=== PATIENT | male | born 1950 | race Caucasian/White ===

== ENCOUNTER 2018-04-07 08:46 | Inpatient (IN) | payer OTHER ==
[~2018-04-07] VITALS: Ht 190.5 cm; Wt 107.2 kg
[2018-04-07] VITALS (8 sets, daily range): BP systolic 118–148; BP diastolic 81–95
[2018-04-07 09:15] LABS: BE(vivo) 7.6 mmol/L (-2 to +3); HCO3 34.2 mmol/L (22.0-26.0); PCO2 56.7 mmHg (35.0-45.0); pH 7.398 (7.360-7.450); sO2 96.8 % (92.0-98.0)
[2018-04-07 09:15] LABS: ABSOLUTE NEUTROPHILS 3.7 thou/uL (1.4-8.2); BASOPHILS 0.4 % (0.0-2.0); EOSINOPHILS 4.9 % (0.0-3.0); HEMOGLOBIN 12.8 gm/dL (14.0-18.0); LYMPHOCYTES 17.7 % (24.0-44.0); MCH 29.4 pg (26.0-34.0); MCHC 32.7 g/dL (28.0-37.0); MCV 89.7 fL (80.0-100.0); PLATELET COUNT 269 thou/uL (150-400); RBC 4.35 mil/uL (4.50-6.00); RDW 15.1 % (10.5-14.5); WBC 5.5 thou/uL (4.0-11.0)
[2018-04-07] MEDS ORDERED: ALBUTEROL2.5 MG/31 INH (09:17)
[2018-04-07] MEDS ORDERED: ASPIR 8181 MG PO (09:19)
[2018-04-07] MEDS ORDERED: DILTIAZEM 24HR240 M2 PO (09:19)
[2018-04-07] MEDS ORDERED: DIGOXIN250 MCG PO (09:20)
[2018-04-07 09:24] LABS: ANION GAP 6 mmol/L (7-16); BUN 8 mg/dL (7-18); CALCIUM 9.4 mg/dL (8.5-10.1); CHLORIDE 101 mmol/L (98-107); CO2 37 mmol/L (21-32); CREATININE 0.8 mg/dL (0.7-1.3); GLUCOSE 106 mg/dL (74-106); POTASSIUM 4.2 mmol/L (3.5-5.1); SODIUM 144 mmol/L (136-145)
[2018-04-07 09:38] LABS: ALBUMIN 3.1 g/dL (3.4-5.0); DIGOXIN < 0.2 ng/mL (0.9-2.0); SGOT 36 U/L (15-37); SGPT 40 U/L (30-65); TOTAL BILIRUBIN 0.7 mg/dL (<0.1-1.0); TOTAL PROTEIN 7.4 g/dL (6.4-8.2); TROPONIN-I <0.06 ng/mL (<0.06)
[2018-04-07] MEDS ORDERED: ATORVASTATIN CA40 MG PO (09:48)
--- NOTE | 2018-04-07 09:48 | EKG ---
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: [facility] : 1950 Requested By: Shakira Bui Order Number: [id number] MD: Cal Boykin Measurements Intervals [place] Rate: 113 P: MS: QRS: 48 QRSD: 104 T: -59 QT: 330 QTc: 453 Interpretive Statements Atrial fibrillation RSR' in V1 or V2, right VCD Borderline T abnormalities, inferior leads No previous ECG available for comparison Electronically Signed On 04-07-2018 9:48:03 REGULATORY SPECIALIST by aCl Boykin [email or web address] ��������������������������������������������� <ELECTRONICALLY SIGNED> ���������������������������������������� By: Cal Boykin MD, [facility] ��������������������������������������������� 04/07/18 0948 0858 0858 Cal Boykin MD, FACC /EPI
[2018-04-07] MEDS ORDERED: AMLACTIN1 EACH TP (09:50)
[2018-04-07] MEDS ORDERED: COLACE100 MG PO (09:51)
[2018-04-07] MEDS ORDERED: DIPHENHIST50 MG PO (09:51)
[2018-04-07] MEDS ORDERED: KEPPRA 500 MG500 M2 PO (09:52)
[2018-04-07] MEDS ORDERED: ZOLOFT50 MG PO (09:53)
[2018-04-07] MEDS ORDERED: FLOMAX0.4 MG PO (09:53)
--- NOTE | 2018-04-07 15:41 | NUR ---
PT ARRIVED TO UNIT AT APROX 1435 WITH BAG, CLOTHES, SHOES, PHONE. SOLUTION LEAD BY ED STAFF. PT ALERT AND ORIENTED, C/O CHEST PAIN FROM COUGHING- NON CARDIAC. PT SOB WITH ACTIVITY, RESOLVES WITH REST. O2 SATS WNL ON 4 L O2 NC. VSS, HR ELEVATED, PHYSICIAN NOTIFIED AND AWARE. ADMISSION HISTORY DOCUMENTED, TELE PUT ON. ADMIT STRIP PRINTED AND DOCUMENTED. WILL ACKNOWLEDGE AND IMPLEMENT ORDERS. WILL CONTINUE TO MONITOR AND FOLLOW POC.
--- NOTE | 2018-04-07 18:37 | NUR ---
CADIZEM GTT STARTED AT 10MG/HR, CONTINUES AT THIS TIME. PT TOLERATING WELL. VSS, PT C/O NON CARDIAC CHEST PAIN FROM COUGHING, ALLEVIATD WITH REST/RELAXATION. PT SOB WITH ACTIVITY, RESOLVED WITH REST. AFIB ON MONITOR, NO S/SX OF CARDIAC OR RESP DISTRESS NOTED. O2 SATS WNL ON 4L O2. DENIES CONCERNS AT THIS TIME. WILL CONTINUE TO MONITOR AND FOLLOW POC.
[2018-04-08 04:27] LABS: BASOPHILS 0.3 % (0.0-2.0); EOSINOPHILS 0.1 % (0.0-3.0); HEMATOCRIT 35.2 % (42.0-52.0); HEMOGLOBIN 11.5 gm/dL (14.0-18.0); LYMPHOCYTES 7.9 % (24.0-44.0); MCH 28.9 pg (26.0-34.0); MCHC 32.5 g/dL (28.0-37.0); MCV 88.8 fL (80.0-100.0); MONOCYTES 1.2 % (1.0-8.0); PLATELET COUNT 270 thou/uL (150-400); POLYS 90.5 % (36.0-66.0); RBC 3.97 mil/uL (4.50-6.00); RDW 15.4 % (10.5-14.5); WBC 3.3 thou/uL (4.0-11.0)
--- NOTE | 2018-04-08 04:36 | NUR ---
ASSESSMENT DOCUMENTED.PT RESTING AT THIS TIME.VSS.A/OX4.PT REMAINS ON CARDIZEM DRIP AT 10MG/HR.ON MONITOR AFIB WITH HR RATE IN LOW 110S.HR INCREASES TO 140S WITH ACTIVITIES AND BR.ON O2 AT 4LITERS PNC,SATS ADEQUATE.BLOOD PRESSURE WNL.C/O HEADCHE AND CHEST PAIN(NON CARDIAC) THAT WAS CONTROLLED PARTIALLY WITH HYDROCODONE.UP WITH ASSIST TO BR.POC IS TO CONT WITH THE TX.WILL CONT TO MONITOR PER POC.
[2018-04-08 04:41] VITALS: BP 102/52
[2018-04-08 04:41] LABS: CALCIUM 8.7 mg/dL (8.5-10.1); CREATININE 0.7 mg/dL (0.7-1.3); MAGNESIUM 1.6 mg/dL (1.8-2.4); POTASSIUM 3.9 mmol/L (3.5-5.1)
[2018-04-08 08:00] VITALS: BP 108/67
--- NOTE | 2018-04-08 08:34 | EKG ---
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 : 1950 Requested By: Ophelia Townsend Order Number: [id number] MD: Cal Boykin Measurements Intervals [place] Rate: 125 P: NC: QRS: 63 QRSD: 104 T: 257 QT: 348 QTc: 502 Interpretive Statements Atrial fibrillation Nonspecific repol abnormality Prolonged QT interval Baseline wander in lead(s) V1 Compared to ECG 04/07/2018 08:58:50 Nonspecific change in the ST and T-wave segments Prolonged QT interval now present Electronically Signed On 04-08-2018 8:34:31 AUTOMATIC MACHINES SUPERVISOR by Cal Boykin [email or web address] ��������������������������������������������� <ELECTRONICALLY SIGNED> ���������������������������������������� By: Cal Boykin MD, [facility] ��������������������������������������������� 04/08/18 0834 1805 1805 Cal Boykin MD, [facility] /EPI
--- NOTE | 2018-04-08 10:15 | 2DMMODE ---
[facility] [address] [place] [address] 2 D/M-MODE ECHOCARDIOGRAM Name: IKER GAY Room #: 212-P ADM IN M.R.#: [id number] ������������� Admission: 04/07/18 ������������� Attend Phys: Evan Love, Discharge: ��� ������������� ��� Date of : 46 Date of Service: 04/08/18 1014 �� Report #: [id number] �������� ��������������������������������������������[id number] THIS REPORT FOR: //name// APPROVED REPORT Study performed: 04/08/2018 09:08:19 EXAM: Comprehensive 2D, Doppler, and color-flow Echocardiogram Patient Location: Echo lab Room #: 212 Status: routine BSA: 1.91 HR: 114 bpm BP: 108/67 mmHg Rhythm: Atrial Fibrillation Other Information Study Quality: Good Risk Factors: Cardiac Risk Factors: Hyperlipidemia, HTN, Smoking Indications COPD Atrial Fibrillation Hypertension/HDD 2D Dimensions IVSd: 10.88 (7-11mm) LVOT Diam: 22.00 (18-24mm) LVDd: 50.73 mm PWd: 11.39 (7-11mm) Ascending Ao: 38.29 (22-36mm) LVDs: 30.85 (25-40mm) Aortic Root: 37.35 mm LV Single Plane 4CH: 66.55 % LV Single Plane 2CH: 61.80 % Biplane EF: 64.4 % Volumes Left Atrial Volume (Systole) Single Plane 4CH: 103.51 mL Single Plane 2CH: 99.51 mL LA ESV Index: 57.00 mL/m2 Aortic Valve AoV Peak Alexx.: 1.46 m/s [facility] [address] [place] [address] 2 D/M-MODE ECHOCARDIOGRAM Name: IKER GAY Room #: 212-P [facility] IN .R.#: [id number] ������������� Admission: 04/07/18 ������������� Attend Phys: Evan Love, Discharge: ��� ������������� ��� Date of : 46 Date of Service: 04/08/18 1014 �� Report #: [id number] �������� ��������������������������������������������[id number] AO Peak Gr.: 8.66 mmHg LVOT Max P.26 mmHg LVOT Max V: 1.03 m/s LETTY Vmax: 2.59 cm2 Pulmonary Valve PV Peak Alexx.: 0.84 m/s PV Peak Gr.: 2.82 mmHg Tricuspid Valve TR Peak Alexx.: 3.15 m/s RAP Estimate: 7.00 mmHg TR Peak Gr.: 40.09 mmHg PA Pressure: 47.00 mmHg Left Ventricle The left ventricle is normal size. There is normal LV segmental wall motion. Borderline concentric left ventricular hypertrophy. Left ventricular systolic function is normal. The left ventricular ejection fraction is within the normal range. LVEF is 60-65%. This study is not technically sufficient to allow evaluation of the LV diastolic function due to atrial fibrillation. Right Ventricle Right ventricle is dilated. The right ventricular systolic function is normal. Atria Left atrium is severely dilated. Right atrium is severely dilated. Aortic Valve Mild aortic valve sclerosis. No aortic regurgitation is present. There is no aortic valvular stenosis. Mitral Valve The mitral valve is normal in structure. Mild mitral regurgitation. No evidence of mitral valve stenosis. Tricuspid Valve The tricuspid valve is normal in structure. Mild tricuspid regurgitation. Pulmonary artery pressure is 47 mmHg. Pulmonic Valve The pulmonary valve is normal in structure. There is no pulmonic valvular regurgitation. Great Vessels The aortic root is normal in size. IVC is normal in size and [facility] [address] [place] [address] 2 D/M-MODE ECHOCARDIOGRAM Name: VICTOR HUGOIKER Room #: 212-P ADM IN M.R.#: [id number] ������������� Admission: 04/07/18 ������������� Attend Phys: Evan Love, Discharge: ��� ������������� ��� Date of : 46 Date of Service: 04/08/18 1014 �� Report #: [id number] �������� ��������������������������������������������[id number] collapses >50% with inspiration. Pericardium There is no pericardial effusion. <Conclusion> The left ventricle is normal size. LVEF is 60-65%. Right ventricle is dilated. The right ventricular systolic function is normal. Left atrium is severely dilated. Right atrium is severely dilated. Mild aortic valve sclerosis. The mitral valve is normal in structure. Mild mitral regurgitation. The tricuspid valve is normal in structure. Mild tricuspid regurgitation. Pulmonary artery pressure is 47 mmHg. The pulmonary valve is normal in structure. There is no pericardial effusion. ��������������������������������������������� <ELECTRONICALLY SIGNED> ���������������������������������������� By: William Leong MD ��������������������������������������������� 04/08/18 1014 1014 1014 William Leong MD /INF
--- NOTE | 2018-04-08 11:20 | NUR ---
Admitted for SOB, pneumonia. Seen for 2 pt risk. Hx of htn, hld, COPD. Labs include Mg 1.6, BG 140-177. Pertinant medications include methylprednisolone, lispro. Pt reported loss of appetite within last week, likely from pneumonia. Appetite usually good. States appetite is increasing, ate 100% of breakfast. Gainned 10-20 lbs at [facility], was on EN. Is currently at UBW of 245. Other notes reported mechanical soft diet at home, pt states was due to weakness chewing. This since has resolved and pt states he has no problems with regular diet. Considered low risk at this time.
[2018-04-08 11:40] VITALS: BP 106/58
--- NOTE | 2018-04-08 12:50 | NUR ---
Case opened to follow for dc planning. Family Resource Specialist visited with the pt at bedside and message left for his sister Tabatha per his request. The pt recently went to [facility] SNF for rehab with the goal of returning home once he was stronger. He does not wish to return to that snf and would like to have a referral sent to [facility] in [place] near his sister Tabatha. Dc supply chain planner to send the referral. He indicates that he lived indep in [facility] with several steps to enter prior to being hospitalized (at [facility]) . He has home o2, a walker and a w/c. He is feeling stronger and is hoping he won't need to be in the SNF for more than a week or two. Dc timeframe is uncertain. The pt is on iv cardizem and iv atb. He is being treated for pneumonia. Will follow.
--- NOTE | 2018-04-08 15:37 | NUR ---
ASSESSMENTS DOCUMENTED. PT AFIB ON THE MONITOR - RATES NOT CONTROLLED. ADDED PO METOPROLOL. ABLE TO TITRATE OFF CARDIZEM GTT. RATES IN THE 70'S. WORKED WITH PT/OT TODAY. IV ABX GIVEN. INSULIN PER MAR FOR ACHS BLOOD SUGARS. PLAN FOR PATIENT TO DISCHARGE TO SNF FOR SOME REHAB ONCE MEDICALLY STABLE. WILL CONTINUE TO MONITOR.
[2018-04-08 16:00] VITALS: BP 92/55
--- NOTE | 2018-04-08 16:16 | NUR ---
FAXED REFERRAL TO [facility] IN [place], [place]. LEFT MSG WITH GAGE IN ADM. OF REFERRAL FAXED TO REVIEW. DCP TO FOLLOW.
--- NOTE | 2018-04-08 19:47 | HC ---
[facility] [address] CONSULTATION Name: IKER GAY Room #: 212-P ADM IN M.R.#: [id number] Admission: 04/07/18 ������������������ Attend Phys: Evan Love MD Discharge: ������������������ Date of : 46 Report #: [id number] THIS REPORT FOR: //name// CC: Evan Rosenbaumnoe Marte Clem DATE OF SERVICE: 04/07/2018 REFERRAL PHYSICIAN: Dr. Love. REASON FOR REFERRAL: Hypoxia. HISTORY OF PRESENT ILLNESS: The patient is a 68-year-old white male who presents to the Emergency Department with progressive dyspnea. A pulmonary consultation was requested. The patient normally gets his medical care at [facility]. 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 He was told that about 8 years ago. He has also been treated for COPD. He is on chronic O2 at 4-5 liters 24 hours a day. He was in his usual state of health until about yesterday evening when he noticed increasing dyspnea, cough productive of purulent sputum. For that reason, he presents to the Emergency Department. Presently, he is feeling better. He denies any recent chest pain or hemoptysis. PAST MEDICAL HISTORY: As mentioned above with a history of COPD, pulmonary fibrosis, atrial fibrillation, hypertension, chronic hypoxic respiratory failure on 3-4 liters of O2, anxiety, depression, questionable history of seizure disorder, currently on Keppra. PAST SURGICAL HISTORY: Noncontributory. ALLERGIES: None. HOME MEDICATIONS Nebulized albuterol, diltiazem, aspirin, Lanoxin, Lipitor, AmLactin, Benadryl, Colace, Keppra 500 mg p.o. b.i.d., Zoloft, Flomax. FAMILY HISTORY: Noncontributory. SOCIAL HISTORY: The patient has smoked for most of his life until about 8 years ago. He denies any alcohol use. He was recently hospitalized at [facility] and subsequently discharged to a chcf facility. [facility] [address] [place] [address] CONSULTATION Name: GAYIEKR Room #: 212-P ADM IN M.R.#: [id number] Admission: 04/07/18 ������������������ Attend Phys: Evan Love MD Discharge: ������������������ Date of : 46 Report #: [id number] REVIEW OF SYSTEMS: As mentioned above, otherwise 10-point system review negative. PHYSICAL EXAMINATION: GENERAL: He is awake, alert, in no distress. VITAL SIGNS: Temperature is 97.4 degrees Fahrenheit, pulse is 120, respiratory rate is 20, blood pressure 130/81 mmHg, saturating 95%. HEENT: Normocephalic, atraumatic. NECK: Supple, without lymphadenopathy or thyromegaly. CHEST: Breath sounds are fair with bilateral crackles, mild expiratory wheezes. CARDIOVASCULAR: Irregularly irregular. Pulses are 2+/4+ bilaterally. ABDOMEN: Soft, nontender, no organomegaly or masses felt. GENITOURINARY: Deferred. RECTAL: Deferred. EXTREMITIES: No edema, cyanosis or clubbing. LABORATORY DATA: Chest x-ray shows bilateral interstitial infiltrates, changes consistent with honeycombing in both lung magallanes, greater in the left lower lobe, throughout in the right lung field with elevated right hemidiaphragm, traction bronchiectasis is also noted in the right side. No old x-rays available for comparison. BNP is 1000. Procalcitonin level is 0.07. Electrolytes are normal, creatinine is normal. Liver enzymes are normal. WBC 5500, hemoglobin 12.8, no evidence of significant bandemia. Mild eosinophilia is present. Arterial blood gas revealed pH 7.39, pCO2 of 56, pO2 of 91 mmHg on 4 liters of O2. Albumin 3.1. IMPRESSION: 1. Progressive dyspnea in this 68-year-old white male with history of chronic obstructive pulmonary disease, pulmonary fibrosis. Arterial blood gas shows chronic hypercapnic hypoxic respiratory failure. Chest x-ray shows what appears to be chronic infiltrates, consistent with pulmonary fibrosis bilaterally. The patient has a history of COPD and is oxygen dependent. Etiology is probably related to exacerbation of chronic obstructive pulmonary disease along with perhaps also with exacerbation of underlying interstitial lung disease. 2. Chronic obstructive pulmonary disease, severity unknown. 3. Interstitial lung disease. Chest x-ray suggests pulmonary fibrosis. Appears to be moderately severe. Etiology is probably related to interstitial pneumonias. I would review records from [facility] for now and defer any further workup as I suspect this has been evaluated before. The patient has been followed by the Pulmonary Department at [facility]. 4. Tczim-wi-olarwhc hypercapnic hypoxic respiratory failure, normally on 4-3 liters of O2. 5. Atrial fibrillation with rapid ventricular response due to pulmonary impairment. [facility] [address] [place] [address] CONSULTATION Name: IKER GAY Room #: 212-P ADM IN M.R.#: [id number] Admission: 04/07/18 ������������������ Attend Phys: Evan Love MD Discharge: ������������������ Date of : 46 Report #: [id number] 6. Hypertension. 7. Anxiety and depression. 8. Questionable history of seizure disorder. Again, verifying with the medical records from [place] would be helpful. RECOMMENDATIONS: Agree with broad-spectrum antibiotics, corticosteroids. DVT and GI prophylaxis recommended. Would also request records from [facility] for review, particularly regarding his pulmonary history. Also, agree with broad spectrum antibiotics regarding possible nosocomial infections given his recent hospitalization. Thank you for this consultation. ��������������������������������������������� <ELECTRONICALLY SIGNED> ���������������������������������������� By: Estuardo Nj MD ��������������������������������������������� 04/08/18 [phone] Estuardo Nj MD /nt
[2018-04-08 19:56] VITALS: BP 96/59
--- NOTE | 2018-04-09 03:27 | NUR ---
ASSESSMENT DOCUMENTED.PT RESTING IN NO ACUTE DISTRESS.A/OX4.VSS.ON MONITOR REMAINS AFIB WITH CONTROLLED RATE.REMAINS ON OXYGEN USE,LUNGS SOUNDS CONGESTED AND COARSE.TOLERATES ACTIVITIES.ABT PER ORDERS.POC IS TO DISCHARGE TO NURSING FACILITY WHILE STABLE.WILL CONT TO MONITOR PER POC.
[2018-04-09 06:27] VITALS: BP 155/43
[2018-04-09 06:46] VITALS: BP 107/73
[2018-04-09 07:50] VITALS: BP 110/62
[2018-04-09 08:47] LABS: HEMATOCRIT 36.1 % (42.0-52.0); HEMOGLOBIN 11.4 gm/dL (14.0-18.0); MCH 28.4 pg (26.0-34.0); MCHC 31.6 g/dL (28.0-37.0); MCV 89.9 fL (80.0-100.0); RBC 4.02 mil/uL (4.50-6.00); RDW 15.4 % (10.5-14.5); WBC 7.3 thou/uL (4.0-11.0)
[2018-04-09 08:59] LABS: CREATININE 0.8 mg/dL (0.7-1.3); MAGNESIUM 1.9 mg/dL (1.8-2.4); POTASSIUM 4.3 mmol/L (3.5-5.1)
[2018-04-09 11:15] VITALS: BP 107/66
--- NOTE | 2018-04-09 12:02 | NUR ---
Case discussed with the care team. Pt desat with activity on 6liters of o2, needing 10 liters to recover. Continues on iv atb. Dc not likely til early next week. [facility] is the new name for [facility] in [facility]. [employer] spoke with their DON. They do have a bed for Thursday if he is ready. They will need a clinical update on Thursday morning. DC production planner scheduler has refaxed the H/p as it did not fax well. Will follow.
--- NOTE | 2018-04-09 16:52 | NUR ---
PT CARE ASSUMED APPROX 0700. PT ALERT AND ORIENTED X4. C/O SOA X1 THIS SHIFT AFTER AMBULATING WITH PT. ONCE RECOVERED PT DENIES SOA ALL DAY. PT C/O NONCARDIAC CHEST PAIN FROM COUGHING. PAIN MANAGED WITH HYDROCODONE. PT REPORTS RELIEF. VSS. BS ELEVATED PERIODICALLY. BS CONTROLLED WITH SSI. NONE NEEDED THIS EVENING. IV ABT REMAINS TO POC. NO DISTRESS NOTED.
[2018-04-09 17:15] VITALS: BP 138/16
[2018-04-09 19:58] VITALS: BP 90/63
--- NOTE | 2018-04-10 03:35 | NUR ---
ASSESSMENT DOCUMENTED.PT RESTING IN NO ACUTE DISTRESS.A/OX4.PAIN MEDS GIVEN FOR NON CARDIAC CHEST PAIN AND HEADACHE WITH PARTIAL RELIEF.VSS.AFIB ON MONITOR,RATE CONTROLLED.REMAINS ON ABT TX.O2 AT 4LITERS NC,NO RESP DISTRESS NOTED OR REPORTED.POC IS TO CONT WITH ABT,NEB TX,STEROIDS AND DISCHARGE TO SNF WHILE STABLE.
[2018-04-10 04:02] VITALS: BP 103/73
[2018-04-10 06:22] LABS: HEMATOCRIT 34.4 % (42.0-52.0); HEMOGLOBIN 11.2 gm/dL (14.0-18.0); MCHC 32.5 g/dL (28.0-37.0); MCV 89.3 fL (80.0-100.0); RBC 3.85 mil/uL (4.50-6.00); RDW 15.5 % (10.5-14.5); WBC 5.1 thou/uL (4.0-11.0)
[2018-04-10 06:44] LABS: CALCIUM 8.1 mg/dL (8.5-10.1); CREATININE 0.7 mg/dL (0.7-1.3); POTASSIUM 4.4 mmol/L (3.5-5.1)
[2018-04-10 08:18] VITALS: BP 107/77
[2018-04-10 11:54] VITALS: BP 104/68
--- NOTE | 2018-04-10 16:33 | NUR ---
PT CARE ASSUMED APPROX 0700. PT ALERT AND ORIENTED X4. DENIES SOA WITH REST. SOA WITH EXERTION NOTED. IMPROVED FROM YESTERDAY PER PT REPORT. C/O NONCARDIAC CHEST PAIN. PAIN MANAGED WITH HYDRCODONE. VSS. IV ABT REMAIN TO POC. BS WNL SO FAR THIS DAY. NO DISTRESS NOTED.
[2018-04-10 16:36] VITALS: BP 114/66
[2018-04-10 19:52] VITALS: BP 103/66
--- NOTE | 2018-04-11 04:41 | NUR ---
ASSUMED PT CARE AT 1900 WITH BEDSIDE REPORT COMPLETED. PT IS ALERT AND ORIENTED. NO FAMILY AT BEDSIDE. PT IS LAYING IN BED. ASSESSMENT IS COMPLETED AND CHARTED. SCHEDULED MEDS ADMINISTERED TO PATIENT. PT TOLERATED PO INTAKE. PT IS STABLE. NO SIGN OF DISTRESS NOTED IN PT. DENIES ANY NEEDS AT THIS TIME.
[2018-04-11 05:51] VITALS: BP 107/68
[2018-04-11 06:17] LABS: HEMATOCRIT 34.7 % (42.0-52.0); MCH 30.7 pg (26.0-34.0); MCHC 34.5 g/dL (28.0-37.0); MCV 88.9 fL (80.0-100.0); RBC 3.91 mil/uL (4.50-6.00); RDW 15.2 % (10.5-14.5); WBC 4.2 thou/uL (4.0-11.0)
[2018-04-11 06:34] LABS: CALCIUM 8.1 mg/dL (8.5-10.1); CREATININE 0.8 mg/dL (0.7-1.3); MAGNESIUM 1.8 mg/dL (1.8-2.4); POTASSIUM 4.1 mmol/L (3.5-5.1)
[2018-04-11 07:50] VITALS: BP 109/80
[2018-04-11 11:35] VITALS: BP 96/51
[2018-04-11 15:35] VITALS: BP 113/64
--- NOTE | 2018-04-11 18:13 | NUR ---
PT CARE ASSUMED APPROX 0700. PT ALERT AND ORIENTED X4. DENIES SOA. C/O PAIN 09/18 NON CARDIAC CHEST PAIN. PAIN MANAGED WITH HYDROCODONE. PT REPORTS RELIEF. VSS. BS ELEVATED. SSI USED TO CONTROL. UP WITH SBA. STEADY GAIT. NO DESATTING OR SOA NOTED WITH EXERTION. IV STEROIDS REMAIN TO POC. IV ABT REMOVED FROM POC. NO CLINICAL CHANGES NOTED THIS SHIFT.
[2018-04-11 19:52] VITALS: BP 109/72
--- NOTE | 2018-04-12 03:07 | NUR ---
ASSESSMENT DOCUMENTED.PT BEEN RESTING IN NO ACUTE DISTRESS.A/OX4.VSS.AFIB ON MONITOR WITH CONTROLLED RATE.PT REMAINS ON O2 AT 4LITERS PNC.DYSPNEA WITH EXERTION NOTED ESPECIALLY WHILE AMBULATING,RECOVERS BETTER THAN LAST COUPLES OF DAYS.NON CARDIAC PAIN REPORTED THAT IS CONTROLLED WITH PAIN MEDS.POC IS TO DISCHARGE TO A NURSING FACILITY WHILE STABLE.WILL CONT TO MONITOR PER POC.
[2018-04-12 04:27] LABS: HEMATOCRIT 36.8 % (42.0-52.0); HEMOGLOBIN 12.3 gm/dL (14.0-18.0); MCH 29.4 pg (26.0-34.0); MCHC 33.3 g/dL (28.0-37.0); MCV 88.4 fL (80.0-100.0); RBC 4.16 mil/uL (4.50-6.00); RDW 15.1 % (10.5-14.5); WBC 5.2 thou/uL (4.0-11.0)
[2018-04-12 04:36] LABS: CALCIUM 8.1 mg/dL (8.5-10.1); CREATININE 0.8 mg/dL (0.7-1.3); MAGNESIUM 1.8 mg/dL (1.8-2.4); POTASSIUM 4.3 mmol/L (3.5-5.1)
[2018-04-12 04:58] VITALS: BP 101/61
[2018-04-12 08:51] VITALS: BP 119/82
[2018-04-12 11:48] VITALS: BP 124/74
--- NOTE | 2018-04-12 13:42 | NUR ---
FAXED REFERRAL TO [facility] SPOKE WITH VAL IN ADM. SHE REVIEWED AND WILL BE ABLE TO ACCEPT AT DC. DCP TO FOLLOW.
--- NOTE | 2018-04-12 14:55 | NUR ---
met with patient to discuss dc planning. Patient accepted to [facility] for post acute care. patient admitted from [facility] from [place] and did not want to return. Patient reports he no longer wants post acute care he wants to return home with HH care, no preference for HH. He reports he may loose his food stamps and requested caset fax his [facility] prescriptions to a SS number he gave. Informed him cannot fax this infor as no affiliated with [employer] and not faxing medical information to unknown fax number. Sp with his [place] sound engineering technician Lorrie who reports she will f/u regarding his food stamps. Patient reports he lives in [facility] with flight of steps to bedroom. He reports he feels at baseline and has home oxygen unu 4 liters at home via [employer] [facility]. He has a walker at home. He is agreeable for caset to call sister. Updated sister that patient adament to return home and no longer agreeable to post acute care. Updated phys, planned tenative dc home in am with HH care.
--- NOTE | 2018-04-12 15:12 | NUR ---
FAXED REFERRAL TO [facility]. SPOKE WITH GENO IN ADM. SHE RECEIVED REFERRAL AND WILL REVIEW. DCP TO FOLLOW.
--- NOTE | 2018-04-12 15:38 | NUR ---
spoke with therapy patient cont to desat with ambulation. he cont to want to return home. Sp with [facility] to reeval as patient willing to stay here in hospital for rehab.
[2018-04-12 16:00] VITALS: BP 109/74
--- NOTE | 2018-04-12 18:26 | NUR ---
ASSUMED CARE OF PT AT SHIFT CHANGE. ASSESSMENTS CHARTED. MEDS GIVEN PER APR. PT ALERT AND ORIETNTED, C/O PAIN THIS SHIFT, MANAGED WITH PO PAIN MEDS. O2 SATS WNL ON 4-6 L, CONTINUES TO BE SOB WITH ACTIVITY. RESOLVED WITH REST. NO S/SX OF CARDIAC OR RESP DISTRESS NOTED. PT UP WITH PHYSICAL THERAPY, WALKED AROUND UNIT, TOLERATED WELL. SW FOLLOWING FOR DC PLANNING, FAMILY UPDATED. PT DENIES CONCERNS AT THIS TIME. WILL CONTINUE TO MONITOR AND FOLLOW POC.
[2018-04-12 20:19] VITALS: BP 112/69
--- NOTE | 2018-04-13 03:20 | NUR ---
ASSESSMENT DOCUMENTED.PT RESTING IN NAD.A/OX4.DENIES ANY CONCERNS.PT DISCHARGING TODAY TO HOME WITH HH.REMAINS ON O2 AT 4LITERS PER NC.VSS.AFIB ON MONITOR W/CONTROLLED HR.PT READY TO GO HOME.WILL CONT TO MONITOR PER POC.
[2018-04-13 04:14] VITALS: BP 112/69
[2018-04-13 04:25] LABS: HEMATOCRIT 36.8 % (42.0-52.0); MCH 29.1 pg (26.0-34.0); MCHC 32.7 g/dL (28.0-37.0); MCV 89.1 fL (80.0-100.0); RBC 4.13 mil/uL (4.50-6.00); RDW 15.3 % (10.5-14.5); WBC 5.3 thou/uL (4.0-11.0)
[2018-04-13 04:42] LABS: CALCIUM 8.4 mg/dL (8.5-10.1); CREATININE 0.7 mg/dL (0.7-1.3); MAGNESIUM 1.9 mg/dL (1.8-2.4); POTASSIUM 4.5 mmol/L (3.5-5.1)
[2018-04-13 08:20] VITALS: BP 123/86
[2018-04-13 08:23] VITALS: BP 123/86
[2018-04-13] MEDS ORDERED: METOPROLOL SUCC50 MG PO (10:41)
[2018-04-13] MEDS ORDERED: PREDNISONE 20 M20 MG PO (10:48)
--- NOTE | 2018-04-13 10:54 | NUR ---
Patient accepted to [facility]. Discussed with patient who is agreeable to [facility] and aware he must stay at least 5 days for therapy. He is agreeable. Left message for sister to call casemgt.
[2018-04-13 12:00] VITALS: BP 110/71
--- NOTE | 2018-04-13 15:52 | NUR ---
ASSUMED CARE OF PT AT SHIFT CHANGE. ASSESSMENTS CHARTED. MEDS GIVEN PER APR. PT ALERT AND ORIENTED, C/O CHEST PAIN FROM COUGHING, MANAGED WITH PO PAIN MEDS. O2 SATS WNL ON 4L, NO S/SX OF CARDIAC OR RESP DISTRESS NOTED. PT UP SBA WITH PHYSICAL THERAPY, TOLERATED WELL, SOB WITH EXERTION, RESOLVED WITH REST. DC ORDERS FOR [facility] ACKNOWLEDGED AND IMPLEMENTED, REPORT CALLED TO [facility] NURSE. IV REMOVED, TELE REMOVED, PT LEFT UNIT AT APPROX 1515 BY [facility]OL[facility]ER [facility]SPORT WITH ALL BELONGINGS.
== END 2018-04-13 15:48 | DRG 177 ==
LOC: ER 08:46 → EROBS 10:29 → 2N 10:29 → EROBS 11:18 → 2N 14:26 → ENTRNSPT 04-13 15:12 → EDTRNSPTSTS 04-13 15:20 → 2N 04-13 15:48
PROVIDERS: Nurse Practitioner; Student in an Organized Health Care Education/Training Program; ADMIT Internal Medicine
DX: J15.6 Pneumonia due to other Gram-negative bacteria (principal); J96.21 Acute and chronic respiratory failure with hypoxia; J96.22 Acute and chronic respiratory failure with hypercapnia; J44.1 Chronic obstructive pulmonary disease with (acute) exacerbation; I10 Essential (primary) hypertension; F41.9 Anxiety disorder, unspecified; F32.9 Major depressive disorder, single episode, unspecified; G40.909 Epilepsy, unspecified, not intractable, without status epilepticus; E78.5 Hyperlipidemia, unspecified; N40.0 Benign prostatic hyperplasia without lower urinary tract symptoms; Z60.2 Problems related to living alone; J84.10 Pulmonary fibrosis, unspecified; G89.4 Chronic pain syndrome; G47.33 Obstructive sleep apnea (adult) (pediatric); I48.2 Chronic atrial fibrillation; E83.51 Hypocalcemia; Z79.899 Other long term (current) drug therapy; Z87.891 Personal history of nicotine dependence; Z99.81 Dependence on supplemental oxygen; Z83.3 Family history of diabetes mellitus; Z84.89 Family history of other specified conditions; Z91.012 Allergy to eggs
CPT/HCPCS: 10081

== ENCOUNTER 2018-04-13 11:31 | Inpatient (IN) | payer OTHER ==
[~2018-04-13] VITALS: Ht 190.5 cm; Wt 108.0 kg
--- NOTE | ~2018-04-13 | H ---
[facility] [place] [address] HISTORY AND PHYSICAL Name: IKER GAY Room #: 501-A ADM IN M.R.#: [id number] Admission: 04/13/18 ������������������ Attend Phys: Krishna Chavez MD Discharge: ������������������ Date of : 46 Report #: [id number] THIS REPORT FOR: //name// CC: Krishna Galvin DATE OF SERVICE: 04/13/2018 HISTORY AND PHYSICAL/POSTADMISSION PHYSICIAN EVALUATION: HISTORY OF PRESENT ILLNESS: The patient is a 68-year-old male originally admitted to [facility] 04/07/2018 with increased shortness of breath, acute on chronic respiratory failure, noted to have acute exacerbation of COPD. Initial atrial fibrillation with rapid ventricular rate. He was followed by Cardiology and Pulmonary were titrated down on IV steroids. Treated with nebulizer treatments. He premorbidly is on 4-5 liters nasal prong O2 at home. He was noted to have a significant decline from his premorbid function and has been admitted for acute in-hospital inpatient rehabilitation. PAST MEDICAL HISTORY: Includes pulmonary fibrosis, atrial fibrillation, pneumonia, COPD, hyperlipidemia, BPH, seizure disorder. PAST SURGICAL HISTORY: Includes nose surgery. FAMILY HISTORY: Diabetes in his brother and his mother had brain surgery. HABITS: Past smoker, quit greater than a year ago. No history of alcohol abuse. No history of recreational drug usage. MEDICATIONS: Please see the full medication listing. This includes vitamins, herbals, and supplements per report. ALLERGIES: Include EGG. SOCIAL HISTORY: Lives in a house alone, was premorbidly independent with basic ADLs and IADLs. He does have someone come in to help with cleaning, cooking, 4 days a week for a couple of hours per day. He was driving in the community. Did not utilize any gait aids.k REVIEW OF SYSTEMS: Did not offer any current complaints of chest pain, shortness of breath or abdominal discomfort. No complaints of fever or chills. No palpitations. No headache, dizziness, tingling. Did not offer any complaints of any bowel or bladder changes. PHYSICAL EXAMINATION: GENERAL: He is a pleasant 68-year-old white male in no obvious distress. The [address] [address] HISTORY AND PHYSICAL Name: IKER GAY Room #: 501-A [facility] IN .R.#: [id number] Admission: 04/13/18 ������������������ Attend Phys: Krishna Chavez MD Discharge: ������������������ Date of : 46 Report #: [id number] patient is alert. VITAL SIGNS: Last recorded temperature 97.9, pulse 77, respirations 20, blood pressure 110/71. HEENT: Appeared to be benign. Cranial nerves grossly intact. He is currently on 4 liters nasal prong. Facies are symmetric. CHEST: He might have some diffuse decreased breath sounds. CARDIOVASCULAR: Sounded irregularly irregular. ABDOMEN: Bowel sounds positive, nontender. GENITOURINARY AND RECTAL: Deferred. EXTREMITIES: Functional range of motion of both upper extremities. Strength is grade 4-/5. DTRs are trace to 1. Lower extremities: No focal calf swelling, trace to no edema. Functional range of motion, strength is grade 4-/5. DTRs are trace to 1. Functionally, he has been needing min assist with basic transfers and min assist for short distance ambulation. ASSESSMENT: This is a 68-year-old male with the following problem list: 1. Pulmonary rehabilitation. 2. Acute on chronic respiratory failure. 3. Acute exacerbation of chronic obstructive pulmonary disease. 4. Atrial fibrillation, now rate controlled. 5. Pulmonary fibrosis. 6. Benign prostatic hypertrophy. 7. History of chronic pain syndrome. 8. Depression. 9. History of low calcium. Last calcium was noted to be 8.2. PLAN: The patient is admitted for acute in-hospital inpatient rehabilitation. From a postadmission physician evaluation perspective, there are no relevant changes since the preadmission screening. Please see the above review of prior and current medical and functional conditions and comorbidities. Please see the patient's previous and current functional status. As far as risk of complications, the patient has multiple medical comorbidities as noted above. The initial plan of care involves the interdisciplinary acute inpatient rehabilitation program with goal of maximizing the patient's functional independence, so that he can hopefully return back to his prior living situation. Prognosis is reasonably good with estimated length of stay, probably 7-10 days. Potential barriers would include the patient's multiple medical comorbidities and decreased functional status. The patient meets diagnostic criteria for an acute in-hospital inpatient rehabilitation stay. He meets the medical necessity criteria [place] [address] HISTORY AND PHYSICAL Name: IKER GAY Room #: 501-A [facility] IN ..#: [id number] Admission: 04/13/18 ������������������ Attend Phys: Krishna Chavez MD Discharge: ������������������ Date of : 46 Report #: [id number] the retail wireless sales consultant physicians continue to follow. He does have the tolerance for therapies and has appropriate discharge goals back to the home setting. ��������������������������������������������� ���������������������������������������� By: ��������������������������������������������� [id number] Krishna Chavez MD /nt
--- NOTE | ~2018-04-13 | D ---
[facility] [place] [address] DISCHARGE SUMMARY Name: IKER GAY Room #: 501-A [facility] IN M.R.#: [id number] Admission: 04/13/18 ������������������ Attend Phys: Krishna Chavez MD Discharge: 04/18/18 ������������������ Date of : 46 Report #: [id number] THIS REPORT FOR: //name// CC: Krishna [facility] DATE OF SERVICE: 04/18/2018 HISTORY: This is a 68-year-old male originally admitted with increased shortness of breath, yulxc-af-qgovzqx respiratory failure, noted to have acute exacerbation of COPD. He had atrial fibrillation with rapid ventricular rate. He was followed by Cardiology, Pulmonary, and was titrated down on IV steroids. He was admitted for pulmonary rehabilitation. Please see the full admission note dictation. HOSPITAL COURSE: The patient was involved in the inpatient rehabilitation program. He was working in therapies, although his progress was adversely affected by some hypotension. He was able to transfer with contact guard and able to ambulate up to 15 feet with min assist. He has chronic atrial fibrillation with problems with hypotension. He was not tolerating beta blockers and Cardizem was to be held. He continued to be dizzy standing and had some loose stools. It was felt that he would require better control of his atrial fibrillation and blood pressure and thus he was transferred off the acute inpatient rehabilitation peterson. DISCHARGE DIAGNOSES: 1. Pulmonary rehabilitation. 2. Dgxwk-fc-ddxmqgf respiratory failure. 3. Symptomatic orthostatic hypotension. 4. Atrial fibrillation. 5. Acute exacerbation of chronic obstructive pulmonary disease. 6. Pulmonary fibrosis. 7. Benign prostatic hypertrophy. 8. Chronic pain syndrome. 9. Depression. 10. Low calcium. PLAN: The patient has been discharged back to acute care. We will defer further medication management, activity level, etc all as per the accepting service. He was actually discharged yesterday on 04/18/2018. ��������������������������������������������� ���������������������������������������� By: ��������������������������������������������� 1155 Krishna Chavez MD /PMT
--- NOTE | ~2018-04-13 | PLAN ---
[facility] [place] [address] REHAB UNIT PLAN OF CARE Name: IKER GAY Room #: 501-A ADM IN M.R.#: [id number] Admission: 04/13/18 ������������������ Attend Phys: Krishna Chavez MD Discharge: ������������������ Date of : 48 Report #: [id number] THIS REPORT FOR: //name// CC: Krishna Galvin DATE OF SERVICE: 04/16/2018 HISTORY: The patient is seen back today in followup. He has had some problems with orthostatic hypotension, which has inhibited his ability to tolerate therapies. Internal Medicine is involved and he has had adjustments to his medications and has been given IV normal saline. Transfers have been contact guard assistance with gait min assist 15 feet. In occupational therapy, lower body dressing is min assist. ASSESSMENT: 1. Pulmonary rehabilitation. 2. Orthostatic hypotension. 3. Acute on chronic respiratory failure. 4. Acute exacerbation of chronic obstructive pulmonary disease. 5. Atrial fibrillation, now rate controlled. 6. Pulmonary fibrosis. 7. Benign prostatic hypertrophy. 8. History of chronic pain syndrome. 9. Depression. 10. History of low calcium. PLAN: The overall plan of care is based on the preadmission screen, post-admission physician evaluation and information garnered from therapy assessments. 1. Estimated length of stay is probably at least 7-10 days, pending progress and potentially longer if warranted. 2. Medical prognosis is reasonably good. 3. Anticipated interventions includes the interdisciplinary acute inpatient rehabilitation program. 4. Anticipated functional outcomes would be for the patient to become modified independent with transfers, mobility, ADLs so that he can hopefully return back to his prior living situation. Goal at this point would be independent at a walker level. 5. Discharge destination would be back home where he lives by himself and does have some paid help. 6. Expected therapy by discipline includes PT, OT 1 to 1-1/2 hours per day each five days a week throughout the duration of the acute inpatient rehabilitation stay. He may need some more assistance at home and will need to see how he does with his therapy program and further treating his orthostatic hypotension. [address] [address] REHAB UNIT PLAN OF CARE Name: VICTOR HUGOIKER Room #: 501-A [facility] IN M.R.#: [id number] Admission: 04/13/18 ������������������ Attend Phys: Krishna Chavez MD Discharge: ������������������ Date of : 48 Report #: [id number] ADDENDUM The patient has missed some therapies in the last couple of days secondary to blood pressure issues with his orthostatic hypotension. He will be placed on a low endurance program. ��������������������������������������������� ���������������������������������������� By: ��������������������������������������������� [id number] Krishna Chavez MD /nt
[~2018-04-13 11:31] MED LIST: ALBUTEROL2.5 MG/31 INH; AMLACTIN1 EACH TP; ASPIR 8181 MG PO; ATORVASTATIN CA40 MG PO; COLACE100 MG PO; DIGOXIN250 MCG PO; DILTIAZEM 24HR240 M2 PO; DIPHENHIST50 MG PO; FLOMAX0.4 MG PO; KEPPRA 500 MG500 M2 PO; METOPROLOL SUCC50 MG PO; PREDNISONE 20 M20 MG PO; ZOLOFT50 MG PO
[2018-04-13 16:00] VITALS: BP 117/72
--- NOTE | 2018-04-13 16:26 | NUR ---
ADMITTED TO ROOM 501. PATIENT IS ALERT AND ORIENTED X4. PATIENT HINTON'S MIXER TENDER ARE EQUAL. LUNGS ARE COARSE AND DEMINISHED WITH EXPIRATORY WHEEZES. PATIENT IS ON 02 AT 4 L PER N/C. PATIENT REMAINS ON RESPIRATORY TX. ABD IS SOFT WITH BSX4. PATIENT HAD BM TODAY. VOIDS [place] COLORED URINE PER URINAL. FALL AND SAFETY PROTOCOLS IN PLACE. DENIES PAIN AT THIS TIME. PT/OT/ST EVALS TO BE DONE IN A.M. WILL CONTINUE TO MONITER.
[2018-04-13 19:15] VITALS: BP 110/71
--- NOTE | 2018-04-14 03:39 | NUR ---
Assumed care of pt at 1915. Pt alert and oriented x4. Ambulates to bathroom with standby assist using gait belt. c/o back pain, relieved with po Lortab. Has appeared to be sleeping when checked on hourly rounds. Fall precautions in place.
[2018-04-14 05:14] LABS: HEMATOCRIT 38.4 % (42.0-52.0); HEMOGLOBIN 12.4 gm/dL (14.0-18.0); MCHC 32.4 g/dL (28.0-37.0); MCV 89.4 fL (80.0-100.0); RBC 4.29 mil/uL (4.50-6.00); RDW 15.2 % (10.5-14.5); WBC 6.7 thou/uL (4.0-11.0)
[2018-04-14 05:27] LABS: ANION GAP < 0 mmol/L (7-16); BUN 23 mg/dL (7-18); CALCIUM 8.2 mg/dL (8.5-10.1); CHLORIDE 100 mmol/L (98-107); CO2 40 mmol/L (21-32); CREATININE 0.7 mg/dL (0.7-1.3); GLUCOSE 96 mg/dL (74-106); MAGNESIUM 1.8 mg/dL (1.8-2.4); POTASSIUM 4.1 mmol/L (3.5-5.1); SODIUM 139 mmol/L (136-145)
[2018-04-14 08:15] VITALS: BP 115/81
--- NOTE | 2018-04-14 11:37 | NUR ---
ASSUMED CARE AT 0700. PATIENT IS ALERT AND ORIENTEDX4. PATIENT HINTON'S. COFOUNDER ARE EQUAL. LUNGS ARE COARSE AND DEMINISHED WITH EXPIRATORY WHEEZES. PATIENT ON 02 AT 4L PER N/C. PATIENT CONTINUES ON RESPIRATORY TX. BS 84 THIS AM. PATIENT SERVED BREAKFAST. BP95/60, INCREASED FLUIDS. COMPLAIN OF BEING DIZZY WHEN SITS ON SIDE OF BED. LEFT IN BED THIS A.M. BP 101/60. FALL AND SAFETY PROTOCOLS IN PLACE. C/O NON CARDIAC CP, FROM COUGHING. MEDICATED WITH PRN HYDROCODONE 5/325 1 PO. ACCUCHECKS AND SS INSULIN DC'D. S.L. PATENT IN PATIENT LEFT FORARM. SITE WITHOUT REDNESS OR SWELLING. CONTINUES TO PROGRESS TOWARDS D/C GOALS. WILL CONTINUE TO [facility].
[2018-04-14 13:46] VITALS: BP 115/81
--- NOTE | 2018-04-14 13:49 | NUR ---
Cm assessment completed with the pt. Pt known to cm from his acute inpt stay. He has been treated for pneumonia,copd and afib. The pt is a&ox4 and normally [facility] indep [facility]. He was hospitalized at [place] last month and sent to snf at [facility] for one day before readmitting here. The pt considered a SNF in [place] near his sister, but his anxious to go straight home and motivated to work toward regaining his independence. He has home O2 in place thru [facility] and usually needs 4 liters. He has a walker and w/c at home but did not utilize them prior to admission. He has two steps to enter and 14 up to his bedroom and bathroom. He has a railing on one side of the flight going up. His sister Tabatha is aware of his dc goal and is glad he is coming to rehab before going home. She has brought in his bills and mail for him. The pt also has a case repairer at [facility] that was working on restarting his food stamps. He denies any preference for HH at [facility]. [facility] referral initiated and they can accept at [facility]. Pt's sister will need to be updated after team conference next week. OR goal is to return home with hh.
[2018-04-14 19:19] VITALS: BP 108/71
--- NOTE | 2018-04-14 23:39 | NUR ---
PT ALERT AND ORIENTED X 4. UP TO BR WITH GAIT BELT AND ASSIST X 1. SOME SOB WITH EXERTION. 02 ON AT 4L PER NC CONT. PT C/O NON-CARDIAC CHEST PAIN. HYDROCODONE GIVEN AT HS AND PT SLEEPING UPON REASSESSMENT. BED ALARM ON FOR SAFETY. PT CHECKED ON HOURLY ROUNDS.
[2018-04-15 08:41] VITALS: BP 102/69
[2018-04-15 11:25] VITALS: BP 89/64
[2018-04-15 14:30] VITALS: BP 92/58
--- NOTE | 2018-04-15 15:15 | NUR ---
ASSUMED CARES AT 0700. PT AWAKE, ALERT AND ORIENTED*4. C/O NON-CARDIAC R/T CHEST PAIN, ACETAMINOPHEN ADMINISTERED. PT CONTINUES TO HAVE LOW BP, 1000ML NS BOLUS ADMINISTERED PLUS MAINTENANCE NS AT 100ML/HR, BP 92/58 AFTER BOLUS. PT CONTINUES TO C/O LIGHT HEADEDNESS AND DIZZINESS AND NAUSEA, MECLIZINE ADMINISTERED ORDERED. PT PARTICIPATED IN THERAPY (IN BED) THIS AM BUT REFUSED PHYSICAL THERAPY THIS AFTERNOON STATING THAT HE WAS TIRED. PER THERAPISTS PT LOOKED CONFUSED AND UNSTEADY WHEN SBP WAS BELOW 90, WILL CONTINUE TO MONITOR. PT HAS SCABS AND SKIN TEARS ON ARMS, OPEN TO AIR. MILD BLE EDEMA NOTED. ON 4L OXYGEN VIA NC WITH SATS >95%. PT UP WITH 1 PERSON SBA GAITBELT AND O2 TUBING. Q1H VISUAL CHECKS. CALL LIGHT WITHIN REACH. FALL PRECAUTIONS IN PLACE
[2018-04-15 16:33] VITALS: BP 114/72
[2018-04-15 19:25] VITALS: BP 103/60
--- NOTE | 2018-04-16 00:19 | NUR ---
PT ALERT AND ORIENTED X 4. AMB TO BR WITH GAIT BELT AND ASSIST X 1 WITHOUT DIFFICULTY. 02 ON AT 4L PER NC CONT. IV INFUSING ORDERED. NO C/O DIZZINESS OR OF BEING LIGHTHEADED. C/O NON-CARDIAC CHEST PAIN. HYDROCODONE GIVEN X 1 AND PT SLEEPING UPON REASSESSMENT. BP 103/60 AT START OF SHIFT. BED ALARM ON FOR SAFETY. PT CHECKED ON HOURLY ROUNDS.
[2018-04-16 07:15] VITALS: BP 110/78
[2018-04-16 12:05] VITALS: BP 112/75
--- NOTE | 2018-04-16 12:14 | NUR ---
PT ALERT AND ORIENTED TIMES FOUR. BP LOW THIS MORNING WHILE STANDING AND WORRKING WITH PHYSICAL THERAPY. PT ALSO C/O BEING DIZZY. AUTOGRAPHER ON UNIT MEDICATIONS ORDERED AND GIVEN. BP NOW 112/75. IVF INFUSING PER ORDER. PT TOLERATES MEDS AND MEALS. PT SLOWLY PROGRESSING TOWRADS POC GOALS.
[2018-04-16 17:51] LABS: URINE BILIRUBIN NEGATIVE (Negative); URINE BLOOD NEGATIVE (Negative); URINE CLARITY CLEAR; URINE COLOR YELLOW; URINE GLUCOSE-RANDOM* NEGATIVE (Negative); URINE KETONES NEGATIVE (Negative); URINE LEUKOCYTES-REFLEX NEGATIVE (Negative); URINE NITRITE-REFLEX NEGATIVE (Negative); URINE PROTEIN (DIPSTICK) NEGATIVE (Negative)
[2018-04-16 20:00] VITALS: BP 110/64
--- NOTE | 2018-04-16 23:51 | NUR ---
AT 0020 PT AMBULATED TO BATHROOM WITH ASSIST OF ONE. WHILE SEATED ON THE TOILET, PT C/O FEELING "LIKE EVERYTHING'S GOING BLACK", DIZZINESS AND LIGHTHEADEDNESS. ASSISTED BACK TO BED, APICAL PULSE VERY RAPID, THIS RN NOT ABLE TO COUNT RATE. BP AT THAT TIME=84/61. PT DENIED PAIN, INCREASED DYPSNEA OR NAUSEA. JOAN WAS NOTIFIED AND 12-LEAD EKG COMPLETED. EKG SHOWED AFIB WITH VENT RATE 90S-100S AT THAT TIME. PT STATES HE IS NOW LESS DIZZY, NO NEW SYMPTOMS. WILL CONTINUE TO MONITOR CLOSELY.
[2018-04-17 04:10] VITALS: BP 66/42
[2018-04-17 04:15] LABS: HEMATOCRIT 40.5 % (42.0-52.0); HEMOGLOBIN 13.1 gm/dL (14.0-18.0); MCH 28.4 pg (26.0-34.0); MCHC 32.4 g/dL (28.0-37.0); MCV 87.8 fL (80.0-100.0); RBC 4.61 mil/uL (4.50-6.00); RDW 15.2 % (10.5-14.5); WBC 16.4 thou/uL (4.0-11.0)
[2018-04-17 04:24] LABS: CALCIUM 7.7 mg/dL (8.5-10.1); CREATININE 0.8 mg/dL (0.7-1.3)
--- NOTE | 2018-04-17 04:29 | NUR ---
PT AMBULATED TO BATHROOM AT 0400, PASSED SMALL STOOL WITH MOD AMT BRIGHT RED BLOOD IN STOOL. VS ON RETURN TO BED = 66/42, YJHYN=578. RR=16 WITH O2%=96. PT C/O SHORTNESS OF AIR, RESP TX GIVEN AT HIS REQUEST. JOAN WAS NOTIFIED AND ORDERS REC'D FOR LABS AND 500CC IV BOLUS. AT THIS TIME, PT IS SLEEPING QUIETLY WITHOUT FURTHER COMPLAINTS. WILL CONTINUE TO MONITOR CLOSELY
[2018-04-17 04:45] VITALS: BP 100/58
[2018-04-17 07:30] VITALS: BP 113/65
--- NOTE | 2018-04-17 08:56 | NUR ---
ASSUMED CARE AT 0700. PATIENT C/O DIZZINESS AND BLACK SPOTS. PATIENT IS ALERT AND ORIENTED X4. PATIENT HINTON'S. COMPRESSOR REPAIRER ARE EQUAL. PATIENT IS ON BR UNTIL AFTER CT OF ABD AND PELVIS. PATIENT WAS RETURNED TO BED FROM THE BATHROOM. PATIENT IS IN THE SUPINE POSITION IN BED. IVF N.S. INFUSING AT 100 CC/HR PER IV IN HIS LEFT FOREARM. LUNGS ARE CLEAR AND DEMINISHED WITH LEFT EXPIRATORY WHEEZE. ABD IS SOFT WITH BSX4. VOIDS MASON COLORED URINE PER URINAL. FALL AND SAFETY PROTOCOLS IN PLACE. C/O PAIN IN HIS ABD. MEDICATED WITH TRAMADOL AND SIP OF H20. PATIENT REMAINS NPO FOR CT SCAN. THERAPIES ON HOLD UNTIL AFTER THE CT SCAN. WILL CONTINUE TO MONITER.
[2018-04-17 10:33] LABS: HEMATOCRIT 37.6 % (42.0-52.0); HEMOGLOBIN 12.3 gm/dL (14.0-18.0)
[2018-04-17 14:35] VITALS: BP 134/73
--- NOTE | 2018-04-17 17:19 | NUR ---
1600 PATIENT ADMITTED TO ROOM 513. PATIENT IS ALERT AND ORIENTED X4. PATIENT IS VERY [place]. PATIENT HINTON'S, PLATE STACKER ARE EQUAQL. LUNGS ARE COARSE AND DEMINISHED WITH NON-PRODUCTIVE CONGESTED COUGH. PATIENT ABD IS SOFT WITH BSX4. PATIENT HAS +1 EDEMA IN HER LOWER EXTREMITIES. FAMILY AT BEDSIDE. UP IN CHAIR FOR MEALS. FALL AND SAFETY PROTOCOLS IN PLACE. DENIES ANY PAIN AT THIS TIME. PT/OT/ST EVALS TO BE DONE IN A.M. PATIENT HAS S.L. IN HER RIGHT AC. WILL CONTINUE TO MONITER.
--- NOTE | 2018-04-17 18:39 | NUR ---
1100 PATIENT TRANSFERED FROM W/C TO CART. PATIENT HAS IV FLUIDS INFUSING INTO RIGHT HAND IV. SITE WITHOUT REDNESS OR SWELLING. PATIENT REMAINS ON 4L 02 PER N/C. PATIENT REMAINS NPO FOR CT OF ABD AND PELVIS. WILL CONTINUE TO MONITER WHEN HE RETURNS FROM C.T. SCAN.
--- NOTE | 2018-04-17 18:42 | NUR ---
1200 PATIENT RETURNED FROM C.T. SCAN. PT IV OUT. TRANSFERED FROM CART TO BED. IV REINSERTED IN THE LEFT FORARM. IV NS INFUSING AT 100 CC/HR. DR. KINSEY DC'Flora ALBERTSAZJAKE AND IV FLUIDS. BP 113/70. PATIENT HAD BM WITH NO BLOOD. CT SCAN IS NEGATIVE FOR G.I. BLEED. PATIENT RESTING QUIETLY IN BED.
[2018-04-17 19:33] VITALS: BP 108/75
[2018-04-18 01:21] VITALS: BP 95/61
[2018-04-18 01:27] VITALS: BP 80/52
--- NOTE | 2018-04-18 03:17 | NUR ---
assumed care at approx 1900 evening 04/17. pt alert and oriented x4, appropriate and cooperative sitting up in bed at change of shift resting and watching tv. pt assist up to bathroom to void and have small bm on toilet. pt took hs meds with no problems. 02 at 4l per n/c with resp tx as ordered. pt with low bp within last hour however pt asymptomatic at present and appears to be sleeping soundly. pt was up to bathroom and now back to bed. call light in reach. bed alarm on, will continue to monitor.
[2018-04-18 06:15] VITALS: BP 98/48
[2018-04-18 09:43] VITALS: BP 103/53
[2018-04-18 11:11] VITALS: BP 115/81
--- NOTE | 2018-04-18 11:55 | NUR ---
assumed care at approx 0715. patient a/o x4. denies pain. apperance pale, tremors noted, patient reported "i'm detoxing from my pain meds." c/o gas cramps, requested simethicone. denies soa, bp low, tachycardic. hospitalist rounded on patient. EKG ordered, hospitalist ordered for patient to be urgently placed on acute care for tele monitoring. patient given scheduled morning meds per 's orders, report called to acute floor rn at 0924. patient's belongings were packed and patient was transported with 2 rns to acute floor, left unit approx 0951. Rehab physician called to notify of discharge. Family called to notify of discharge, messages left for both. steam powerplant supervisor assisted to arrange transfer.
--- NOTE | 2018-04-18 15:05 | HC ---
[facility] [place] [address] CONSULTATION Name: IKER GAY Room #: 501-A [facility] IN M.R.#: [id number] Admission: 04/13/18 ������������������ Attend Phys: Krishna Chavez MD Discharge: 04/18/18 ������������������ Date of : 46 Report #: [id number] THIS REPORT FOR: //name// CC: Krishna Chavez [facility] DATE OF SERVICE: 04/17/2018 ATTENDING PHYSICIAN: Krishna Chavez MD. SHAMPOO TECHNICIAN: Donovan Sotelo, PhD. CLINICAL PRESENTATION: The patient is a 68-year-old white male admitted to the [facility] Unit for a comprehensive inpatient rehabilitation program. He was initially admitted to the [facility] on 04/07/2018 with shortness of breath, acute on chronic respiratory failure and was noted to have an acute exacerbation of COPD. The patient also presented with atrial fibrillation and rapid ventricular rate. His diagnoses on admission to rehab is pulmonary rehabilitation, acute on chronic respiratory failure, acute exacerbation of chronic obstructive pulmonary disease, atrial fibrillation, pulmonary fibrosis, benign prostatic hypertrophy, history of chronic pain syndrome, depression and low calcium. A complete description of his medical condition and history can be found in his medical record. Neuropsychological consultation was requested to provide assistance in the assessment of cognitive and emotional status and to provide recommendations and services. The patient reported that prior to this recent medical event that he had attempted to kill himself through an overdose of oxycodone. He does not report a history of suicidal gesture or prior treatment for depression. Reported is depression over the loss of his friend about 3-4 weeks ago from hepatitis C and concern about his medical condition. The patient also reports possibly having posttraumatic stress disorder. Although, while he was a [place] [employer] , he was stationed in [place] and did not experience actual combat. The patient is not and has no children. He has 3 brothers and 1 sister. He is a high school graduate. 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 TECHNIQUES UTILIZED: Clinical interview, review of medical records, staff consultation and behavioral observation, mini mental status exam 2 standard version, clock drawing and verbal fluency assessment and abstract reasoning evaluation, family interview with the sister and [id number]. EXAMINATION FINDINGS: The patient was pleasant and cooperative during the [facility] [address] [place] [address] CONSULTATION Name: IKER GAY Room #: 501-A [facility] IN M.R.#: [id number] Admission: 04/13/18 ������������������ Attend Phys: Krishna Chavez MD Discharge: 04/18/18 ������������������ Date of : 48 Report #: [id number] assessment. He accurately described events surrounding his admission. Although he the experience of DT's secondary to the withdrawal of oxycodone. The patient does indicate having attempted to kill himself with oxycodone. His sister and byzottk-mr-yjv confirmed a likely suicidal gesture. He asked his [id number] to come to his house and when at the house, the bottles of oxycodone were empty and the patient had left a Last Will and Testament. In his note he indicated that he would be dying soon and those items were to be distributed as indicated. The patient does not report suicidal ideation or plans at this time. He states that while he was suicidal prior to his hospitalization, he is not feeling that way now, although he does present with anxiety and depression. He has been isolated socially, especially since the of his very good friend. Symptoms are reported to include decreased appetite, anxiety, depression and difficulty with word finding. He does not report difficulty with sleep, memory or attention/concentration. His performance on the MMSE 2 brief version is within normal limits with a raw score of 14/16, T score of 44 and percentile rank of 27. Performance on the MMSE 2 standard version was in the low end of average range with the raw score of 25 and a T score of 42, which is at the 21st percentile. The patient was 2/3 for serial 7's. Naming, repetition, comprehension, reading, writing and trying were all within normal limits, although he does present with an upper extremity tremor. He was 2/3 for immediate recall of 3 items after a brief time delay and distraction. Clock drawing was within normal limits. Letter fluency was in the low average range with a raw score of 15, T score of 39 and percentile rank of 14. Category fluency was in the low average range with a raw score of 30, T score of 40, percentile rank of 16. Overall, total fluency was in the borderline range with a T score of 36 and a percentile rank of 8. Abstract reasoning score was 0 of 8. The patient is presenting with deficits in executive functioning. Higher level planning and problem solving are likely to be impaired. He is alert and oriented. Variability in memory is suggested. DIAGNOSTIC IMPRESSION: Mild Neurocognitive Disorder, unspecified without behavior disorder Unspecified depressive disorder with anxiety. Substance use disorder - oxycodone. [facility] [address] [place] [address] CONSULTATION Name: IKER GAY Room #: 501-A [facility] IN M.R.#: [id number] Admission: 04/13/18 ������������������ Attend Phys: Krishna Chavez MD Discharge: 04/18/18 ������������������ Date of : 48 Report #: [id number] RECOMMENDATIONS: The patient would benefit from use of an antidepressant. An antidepressant with pain management features, e.g., Cymbalta, for both pain relief and mood. Psychiatric consultation for assistance in the selection of an antidepressant may be of benefit. Following discharge, continued treatment program for depression that includes psychiatric management of medication and psychotherapy. The patient would also benefit from a structured living environment provided by a care home community. Cognitive functioning is likely to be satisfactory for independent living. His emotional state is affected by lack of social support and social isolation. Thank you very much for allowing me to provide consultation on this patient. ��������������������������������������������� <ELECTRONICALLY SIGNED> ���������������������������������������� By: Donovan Sotelo, PhD ��������������������������������������������� 04/18/18 1505 1805 1447 Donovan Sotelo, PhD /nt
--- NOTE | 2018-04-19 08:05 | EKG ---
[address] [place] [address] ELECTROCARDIOGRAM REPORT Name: IKER GAY Room #: 501-A DIS IN M.R.#: [id number] ������������������ Admission: 04/13/18 ������������������ Attend Phys: Krishna Chavez MD Discharge: 04/18/18 ������������������ Date of : 46 Report #: [id number] ����������������������������������������������������������������� [id number] THIS REPORT FOR: //name// [facility] Test Date: 2018-04-16 Test Time: 23:35:05 Pat Name: IKER GAY Department: Room: [facility] A Gender: M Tobacco Scrap Sifter: eloise : 1950 Requested By: Krishna Chavez Order Number: [id number] MD: Cal Boykin Measurements Intervals [place] Rate: 94 P: [place]: QRS: 58 QRSD: 101 T: -5 QT: 348 QTc: 436 Interpretive Statements Atrial fibrillation Nonspecific T wave abnormality Compared to ECG 04/07/2018 18:05:41 [address]ons[address] change in the ST and T-wave segments Electronically Signed On 04-19-2018 8:05:31 CDT by Cal Boykin [email or web address] ��������������������������������������������� <ELECTRONICALLY SIGNED> ���������������������������������������� By: Cal Boykin MD, [facility] ��������������������������������������������� 04/19/18 08 2335 34 Cal Boykin MD, [facility] /EPI
--- NOTE | 2018-04-19 08:22 | EKG ---
[place] [address] [facility] [place] [address] ELECTROCARDIOGRAM REPORT Name: IKER GAY Room #: 501-A DIS IN M.R.#: [id number] ������������������ Admission: 04/13/18 ������������������ Attend Phys: Krishna Chavez MD Discharge: 04/18/18 ������������������ Date of : 46 Report #: [id number] ����������������������������������������������������������������� [id number] THIS REPORT FOR: //name// [facility] Test Date: 2018-04-18 Test Time: 08:57:57 Pat Name: IKER GAY Department: Room: [facility] A Gender: M Biometrics Instructor: LIAM : 1950 Requested By: Catrachito Walker Order Number: [id number] MD: Cal Boykin Measurements Intervals [place] Rate: 120 P: [place]: QRS: 49 QRSD: 96 T: 249 QT: 273 QTc: 386 Interpretive Statements Incomplete tracing Atrial fibrillation RSR' in V1 or V2, right VCD Nonspecific ST and T wave abnormality Baseline wander in lead(s) V3 Compared to ECG 04/07/2018 18:05:41 No significant change was found Electronically Signed On 04-19-2018 8:22:13 CDT by Cal Boykin [email or web address] ��������������������������������������������� <ELECTRONICALLY SIGNED> ���������������������������������������� By: Cal Boykin MD, [facility] ��������������������������������������������� 04/19/18 0822 0857 0857 Cal Boykin MD, [facility] /EPI
== END 2018-04-18 09:49 | disposition short-term general hospital (02) | DRG 189 ==
PROVIDERS: Nurse Practitioner Acute Care; Nurse Practitioner Family; ADMIT Physical Medicine & Rehabilitation
DX: J96.20 Acute and chronic respiratory failure, unspecified whether with hypoxia or hypercapnia (principal); J44.1 Chronic obstructive pulmonary disease with (acute) exacerbation; J84.10 Pulmonary fibrosis, unspecified; N40.0 Benign prostatic hyperplasia without lower urinary tract symptoms; G89.4 Chronic pain syndrome; F32.9 Major depressive disorder, single episode, unspecified; I95.1 Orthostatic hypotension; G31.84 Mild cognitive impairment of uncertain or unknown etiology; F41.8 Other specified anxiety disorders; I48.2 Chronic atrial fibrillation; E83.51 Hypocalcemia; G40.909 Epilepsy, unspecified, not intractable, without status epilepticus; Z60.2 Problems related to living alone; R53.81 Other malaise; L01.00 Impetigo, unspecified; E78.5 Hyperlipidemia, unspecified; K52.9 Noninfective gastroenteritis and colitis, unspecified; Z83.3 Family history of diabetes mellitus; Z87.891 Personal history of nicotine dependence
CPT/HCPCS: 10112

== ENCOUNTER 2018-04-18 10:13 | Inpatient (IN) | payer OTHER ==
[~2018-04-18] VITALS: Ht 190.5 cm; Wt 101.8 kg
[2018-04-18] VITALS (8 sets, daily range): BP systolic 64–127; BP diastolic 50–90
[2018-04-18 11:40] LABS: HEMATOCRIT 37.6 % (42.0-52.0); HEMOGLOBIN 12.2 gm/dL (14.0-18.0); MCH 28.8 pg (26.0-34.0); MCHC 32.5 g/dL (28.0-37.0); MCV 88.5 fL (80.0-100.0); RBC 4.25 mil/uL (4.50-6.00); RDW 15.8 % (10.5-14.5); WBC 13.5 thou/uL (4.0-11.0)
[2018-04-18 11:50] LABS: CALCIUM 7.8 mg/dL (8.5-10.1); CREATININE 0.8 mg/dL (0.7-1.3); POTASSIUM 3.8 mmol/L (3.5-5.1)
--- NOTE | 2018-04-18 18:17 | NUR ---
68 YO MALE ADMITTED TO CCU FROM 5N. A&OX4. IV INTACT IN L FA. PT HAD BEEN HYPOTENSIVE/WEAK, UNABLE TO PERFORM PT THERAPIESLAST FEW DAYS. EKG COMPLETED WHILE ON 5N TODAY THAT REVEALED SYMPTOMATIC AFIB WITH RVR. HR INCREASED UP TO 160'S. CARDIZEM 10MG IV PUSH ORDERED AND GIVEN BP DECREASED. NS IV BOLUS INFUSED ORDERED. PT'S BP INCREASED, HR DECREASED. PT ADMITTED TO HAVING DIARRHEA LAST 3 DAYS, TWICE SINCE BEING ADMITTED TODAY.
[2018-04-19 03:56] VITALS: BP 84/49
--- NOTE | 2018-04-19 07:05 | NUR ---
PT MAKING SLOW PROGRESS TOWARDS GOALS. PT IN REPORTED CHRONIC AND PERMANENT AFIB. RATE WELL UNDERCONTROL IN THE 70-80'S OVERNIGHT. HAS DENIED ANY COMPLAINTS.
[2018-04-19 09:18] VITALS: BP 98/65
--- NOTE | 2018-04-19 11:19 | NUR ---
Nutrition: pt admitted to unit from rehab with symptomatic afib, colitis per CT. Hx diarrhea past 3 days and decreased appetite. Pt reports both are improved now. Hungry, ate 100% breakfast this am and usual intake is good. UBW is 245#. Current 238#, down 3% within past 2 weeks, moderate. Will follow trends. Obtained food preferences from pt. Consider low nutrition risk at this time.
[2018-04-19 12:05] VITALS: BP 92/56
--- NOTE | 2018-04-19 13:02 | HC ---
[facility] [address] [place] [address] CONSULTATION Name: IKER GAY Room #: 362-P ADM IN M.R.#: [id number] Admission: 04/18/18 ������������������ Attend Phys: Catrachito Walker MD Discharge: ������������������ Date of : 48 Report #: [id number] THIS REPORT FOR: //name// CC: Catrachito Galvin DATE OF SERVICE: 04/18/2018 REASON FOR CONSULTATION: Atrial fibrillation with rapid ventricular response. HISTORY OF PRESENT ILLNESS: This is a very pleasant 68-year-old gentleman who had been up in rehabilitation, who was found to have hypotension and atrial fibrillation with rapid ventricular response. The patient does have permanent atrial fibrillation and had been treated with diltiazem. Upon questioning, the patient states that he can feel when his heart rate goes fast and states that he has been having episodes of atrial fibrillation with rapid rate all along. He states that he had it at discharge from his last hospitalization and he has had it all through rehabilitation. The difference is this past week or so he has been having diarrhea for whatever reason and has not been taking p.o. very well. The patient states he has been having multiple stools in a day and he thinks he has "cleaned out." He did have some dizziness upon standing and some lightheadedness, but no vertigo. He has not had any chest pain, pressure, tightness or heaviness. PAST MEDICAL HISTORY: Significant for: 1. Permanent atrial fibrillation. 2. Pulmonary fibrosis with chronic oxygen use. 3. Dyslipidemia. 4. Benign prostatic hypertrophy. 5. Seizure disorder. 6. Anxiety/depression syndrome. ALLERGIES: EGGS. PAST SURGICAL HISTORY: Significant for nasal surgery. FAMILY HISTORY: Significant for diabetes in a brother and mother having had a brain issue that required surgery. SOCIAL HISTORY: The patient is a former smoker, having quit greater than 1 year ago. Does not consume alcohol, follow a particular exercise regimen or dietary restriction. DIAGNOSTIC STUDIES: Electrocardiogram demonstrates atrial fibrillation with rapid ventricular response, nonspecific ST-T wave changes. [facility] [address] [place] [address] CONSULTATION Name: IKER GAY Room #: 362-P [facility] IN M.R.#: [id number] Admission: 04/18/18 ������������������ Attend Phys: Catrachito Walker MD Discharge: ������������������ Date of : 46 Report #: [id number] REVIEW OF SYSTEMS: Except for symptoms previously mentioned and those commensurate with comorbid state, the 10-point review of systems is negative. MEDICATIONS: AccuNeb, diltiazem 240 daily, aspirin 81 mg daily, Lanoxin 0.25 daily, Lipitor 40 daily, ammonium lactate, Benadryl, Colace, Keppra, Zoloft and Flomax. PHYSICAL EXAMINATION: GENERAL: Well-developed male, resting comfortably, in no acute distress. VITAL SIGNS: Noted and reviewed in the chart. HEENT: Normocephalic, atraumatic. Pupils are equal, round, reactive to light and accommodation. Extraocular muscles are intact. Sclerae and conjunctivae are anicteric. NECK: JVD is normal. Carotid upstrokes are bilaterally symmetrical. No bruits are heard. No thyromegaly. No lymphadenopathy. LUNGS: Demonstrate dry crepitance noted throughout all lung magallanes. CARDIAC: Demonstrates an irregularly irregular rhythm with a controlled rate. Soft systolic murmur at the apex. ABDOMEN: Soft, nontender, nondistended. Normal bowel sounds. EXTREMITIES: Without cyanosis, clubbing or edema. Distal pulses are intact. DTR symmetrical. NEUROLOGIC: Cranial nerves 2-12 are grossly normal and symmetrical. PSYCHIATRIC: Alert, oriented with normal affect. SKIN: Warm and dry. IMPRESSION: 1. Atrial fibrillation with rapid ventricular response, clearly a combination of dehydration and his atrial fibrillation, which appears not to have been under very good control previously according to the patient symptoms. In view of this, I think it is reasonable to augment his rate control by providing stronger rate limiting calcium antagonist. This would be verapamil and I am going to start him on short acting verapamil 80 mg t.i.d., in which case we can switch to the b.i.d. sustained release at 120 twice a day once he gets discharged. I am going to stop the Toprol since it is a new medication and he does have pulmonary fibrosis and I would prefer not to augment any pulmonary issues with that medication. Digoxin is also on board, but in the absence of activity or catacholmine release, then it is reasonable but with the development of any type of catacholmine discharge, digoxin is not very effective at rate control. In addition to this, he is already on stronger rate controlling medications. Since his left ventricular function is normal, the digoxin and is just an extraneous medication without any significant mortality or rate control benefits, so I will stop that. 2. Pulmonary fibrosis seems to be fairly stable at the present time; no need to make any changes at this juncture. 3. Anxiety/depression syndrome seems to be under control currently, no need to [facility] [address] [place] [address] CONSULTATION Name: IKER GAY Room #: 362-P ADM IN M.R.#: [id number] Admission: 04/18/18 ������������������ Attend Phys: Catrachito Walker MD Discharge: ������������������ Date of : 46 Report #: [id number] make any changes. 4. Seizure disorder, on medications. ��������������������������������������������� <ELECTRONICALLY SIGNED> ���������������������������������������� By: William Leong MD ��������������������������������������������� 04/19/18 1302 1909 1937 William Leong MD /nt
[2018-04-19 16:12] VITALS: BP 102/71
--- NOTE | 2018-04-19 16:50 | NUR ---
PATIENT CONT ON CONTACT ISOLATION AT THIS TIME PRECAUTION TO CDIFF. HE HAS NOT HAD ANY BOWEL MOVEMENT TODAY. WILL COLLECT STOOL WITH ANY BM. HE DID COMPLANI OF PAIN THIS AM AND PRN PAIN MEDICATION ADMINISTERED. RSPIRAITONS ARE NON LABORED. WILLL CONT WITH PLAN OF CARE.
[2018-04-19 20:58] VITALS: BP 99/68
[2018-04-20] VITALS (7 sets, daily range): BP systolic 96–144; BP diastolic 50–85
[2018-04-20 05:48] LABS: HEMOGLOBIN 10.7 gm/dL (14.0-18.0); MCH 29.6 pg (26.0-34.0); MCHC 33.3 g/dL (28.0-37.0); MCV 88.8 fL (80.0-100.0); RBC 3.61 mil/uL (4.50-6.00); RDW 16.1 % (10.5-14.5); WBC 9.4 thou/uL (4.0-11.0)
[2018-04-20 05:58] LABS: CALCIUM 7.5 mg/dL (8.5-10.1); CREATININE 0.6 mg/dL (0.7-1.3); POTASSIUM 3.6 mmol/L (3.5-5.1)
--- NOTE | 2018-04-20 06:45 | NUR ---
PT MAKING SLOW PROGRESS TOWARDS GOALS. CONTINUES TO BE IN AFIB WITH RATES 70-80'S AT REST. WITH ACTIVITY 90-110'S. REPORTING GENERALIZED BODY DISCOMFORTS. TREATED WITH LORTAB AND ULTRAM PER ORDERS.
--- NOTE | 2018-04-20 15:36 | NUR ---
NOTED PICKING ON SKIN BUMPS AND PEELING THEM OFF. PATIENT ADVICE AGAINST DIGGING INTO HIS SKIN BUT HE STATED THAT HE HAS TO GET RID OF THIS "RASHES THEY COULD SOON PENETRATE HIS BLOOD STREAM". ANOTHER NOTED THAT PATIENT WAS DOING THAT IN ANOTHER UNIT AND HE WILL NOT STOP DIGGING HIS SKIN. DENIES THAT RASHES DO ITCH. NO BM TODAY. MAY DC FROM CDIFF PRECAUTION. WILL CONT WITH PLAN OF CARE.
--- NOTE | 2018-04-20 15:49 | NUR ---
INITIAL ASSESSMENT: PETRA reviewed chart and spoke with nursing and attending physician. Pt was admitted to 3W from 5N due to A-fib. Pt is progressing towards goals for discharge. SW discussed case with 5N rehabilitation tech, who states they are able to accept pt to 5N tomorrow if pt is medically stable. PETRA met with pt at bedside. Introduced role of SW. Pt is alert/orientated x 4. Pt reports that he was living at home alone in a duplex prior to admission. Pt is on home O2 provided by [facility]. Pt has a walker. Pt is hoping to be able to return home after rehab. Pt states that he may be open to going to a senior community in [place], which would be closer to his sister. Pt is agreeable with going to 5N when medically stable. Pt gives SW permission to discuss his discharge plans with his sister, Tabatha. SW spoke with Tabatha via phone to provide update and discuss pt's discharge to 5N. Tabatha is agreeable with plan and will bring clothes for pt. PETRA is following to assist as needed with discharge planning.
[2018-04-21 04:36] VITALS: BP 124/80
--- NOTE | 2018-04-21 06:47 | NUR ---
PT MAKING PROGRESS TOWARDS GOALS. PT HEART RATE 70-90'S WHILE AT REST. DOES BECOME SLIGHTLY TACHYCARDIC WHILE UP TO BSC BUT RATE RETURNS TO BASELINE SOON AFTER RETURNING TO REST.
[2018-04-21 07:50] VITALS: BP 99/62
[2018-04-21 11:13] VITALS: BP 107/75
--- NOTE | 2018-04-21 15:20 | NUR ---
SW reviewed chart and spoke with nursing and attending physician. Pt is progressing towards goals for discharge. Discharge to 5N is anticipated for tomorrow. SW discussed with rehabilitation assistant. SW met with pt at bedside to discuss discharge plan. Pt is aware and agreeable with plan. Pt's sister updated via phone as well. SW is following to assist as needed with discharge planning.
[2018-04-21 16:05] VITALS: BP 108/76
--- NOTE | 2018-04-21 18:16 | NUR ---
Assumed care of Pt at 0700. Pt AOx4 in no acute distress. bp remains low, asymptomatic but does feel light headed after physical activity. verapimil given w/o adverse effects. afib on telemetry, controlled. up w/ sba. iv abx infusing per order. anticipating d/c to 5N tomorrow if stable. pt progressing toward poc goals.
[2018-04-21 20:58] VITALS: BP 111/63
--- NOTE | 2018-04-22 04:35 | NUR ---
Assumed care of pt at 1900. Pt alert and oriented x4. Requests tramadol and tylenol for generalized pain. Teletype Or Varitype Keyboard Operator on duty notified and order for tylenol prn obtained. Possible dc to rehab this am. Breathing treatments administered by rt. Call light within reach. Will continue to monitor and assist with needs.
[2018-04-22 05:40] VITALS: BP 98/68
[2018-04-22 07:53] VITALS: BP 126/84
[2018-04-22 11:09] VITALS: BP 101/64
--- NOTE | 2018-04-22 11:14 | NUR ---
PATIENT WAS NOTED HAVING A SEIZURE FROM 1110AM TO 1112AM. IT LASTED FOR TWO MINUTES. AT THS NOTE HE IS STARTING TO HAVE ANOTHER ONE.
[2018-04-22 12:10] LABS: HEMATOCRIT 32.6 % (42.0-52.0); HEMOGLOBIN 10.9 gm/dL (14.0-18.0); MCH 29.6 pg (26.0-34.0); MCHC 33.5 g/dL (28.0-37.0); MCV 88.3 fL (80.0-100.0); RBC 3.7 mil/uL (4.50-6.00); RDW 15.9 % (10.5-14.5); WBC 7.8 thou/uL (4.0-11.0)
[2018-04-22 12:36] LABS: ALBUMIN 2.4 g/dL (3.4-5.0); CALCIUM 8.1 mg/dL (8.5-10.1); CREATININE 0.7 mg/dL (0.7-1.3); MAGNESIUM 1.6 mg/dL (1.8-2.4); POTASSIUM 4.3 mmol/L (3.5-5.1); TOTAL BILIRUBIN 0.4 mg/dL (<0.1-1.0); TOTAL PROTEIN 5.8 g/dL (6.4-8.2)
--- NOTE | 2018-04-22 12:58 | NUR ---
Assumed care of Pt at 0700. Pt alert and oriented, in no acute distress. HR improved with verapimil. hypotensive but stable, asymptomatic. around noon patient was witnessed having two seizure-like episodes. nurse on floor reports witnessing patients head shaking back and forth uncontrollably, while being able to state "I am having a seizure!" and grasping call light tightly. this was followed by another episode where all extremeties began to shake, all the while keeping his eyes closed. ativan and one time dose of keppra IV administered. evaluated by neurologist at bedside. EEG pending. will cont to monitor. discharge planning postponed.
[2018-04-22 15:21] VITALS: BP 99/62
--- NOTE | 2018-04-22 15:43 | NUR ---
PETRA reviewed chart and spoke with nursing and attending physician. Pt had seizure activity this morning. Neuro consulted. EEG pending. Discharge to 5N is anticipated for tomorrow. SW left voice message for pt's sister, Tabatha, to provide update. PETRA is following to assist as needed with discharge planning.
[2018-04-22 19:47] VITALS: BP 115/72
[2018-04-23] VITALS (7 sets, daily range): BP systolic 87–117; BP diastolic 48–78
--- NOTE | 2018-04-23 03:47 | NUR ---
Pt. requested tylenol for generalized discomfort with some relief. Slept fair during the night. O2 at 4L/NC which he stated is his baseline at home. Shortness of breath with exertion. No seizure activities , seizure precautions maintained. A fib with controlled rate at rest then tachycardic with acivities. Bed alarm on for safety. Making progress towards care plan goals.
--- NOTE | 2018-04-23 08:57 | NUR ---
ASSUMED PT CARE AT 0700. ASSESSED PT AT 0840. UPON ENTERING THE ROOM THE PT STATED HE HAD BEEN HAVING SEIZURES AND WAS HAVING ONE NOW. TREMORS NOTED TO RIGHT ARM. PT REMAINED AWAKE AND ALERT DURING THIS ACTIVITY. WHEN IT SUDDENLY STOPPED PT STATED, "OH GOOD IT STOPPED" AND PROCEEDED EATING HIS BREAKFAST. A FEW MINUTES LATER PT SATED ANOTHER WAS HAPPENING. THIS OCCURANCE INVOLVED MOVEMENT OF HIS HEAD IN CIRCULA MOTIONS, EYES CLOSED. PT CONTINUED TO TALK THROUGHOUT, ANSWERING QUESTIONS AND EVEN ASKED THAT THE LID BE PLACED BACK ON HIS FOOD DURING THIS ACTIVITY. MOVEMENT SUDDENLY STOPPED AND PT BEGAN EATING AGAIN. PT NEVER LOST CONSCIOUSNESS. REMAINED AWAKE AND ALERT OR ALL THIS ACTIVITY. ASSESSMENT IS OTHERWISE NEGATIVE. NEURO CHECK ARE INTACT, SLIGHT WEAKNESS NOTED TO ARMS BILATERAL. DR BENDER NOTIFIED.
--- NOTE | 2018-04-23 10:20 | EEG ---
[facility] [place] [address] ELECTROENCEPHALOGRAM Name: IKER GAY Room #: 362-P [facility] IN M.R.#: [id number] ������������������ Admission: 04/18/18 ������������������ Attend Phys: Catrachito Walker MD Discharge: ������������������ Date of : 46 Report #: [id number] ����������������������������������������������������������������� [id number] THIS REPORT FOR: //name// CC: Catrachito Galvin DATE OF SERVICE: 04/22/2018 This patient is being evaluated for the possibility of seizure. EEG was done by placing the electrode by standard 10-20 system of electrode placement. Both referential and sequential montages were used for recording. Background activity in this patient's EEG is about 10 Hz and 30 microvolt. This is a symmetrical activity. It is a very well formed background activity. The patient became drowsy that is associated with bilateral slowing. The patient continued to move his eyes and there is eye movement artifact. Photic stimulation is unremarkable. Throughout the record, no active epileptiform activity was noticed. IMPRESSION: This patient's EEG does not demonstrate any clear-cut epileptiform activity and was unremarkable. It might be mentioned that EEG can be normal in a patient with a seizure disorder. ���������������������������������������� <ELECTRONICALLY SIGNED> ���������������������������������������� By: Marv Howard MD ��������������������������������������������� 04/23/18 1020 0920 0926 Marv Howard MD /nt
--- NOTE | 2018-04-23 14:06 | NUR ---
PT CONTINUES TO MAKE JERKING TYPE MOVEMENTS AND STATING HE IS HAVING A "SEIZURE". PT CONTINUES TO BE ABLE TO TALK THROUGH THESE MOVEMENTS. PT HAD NO SUCH ACTIVITY WHEN HE TOOK A NAP BEFORE LUNCH AND WAS ABLE TO SIT UP FOR LUNCH WITH NO ISSUES. AROUND 1400 PT STARTING HAVING JERKING MOVEMENTS AND HEAD MOVED IN CIRCLES. WHEN PT WAS ASKED IF HE COULD OPEN HIS EYES HE STATED "NOT RIGHT NOW. THEY ARE GLUED SHUT". WILL CONTINUE TO MONITOR.
--- NOTE | 2018-04-23 15:38 | NUR ---
DISCHARGE NOTE: PETRA reviewed chart and spoke with nursing and attending physician. Pt is medically stable for discharge to [facility]N today. PETRA discussed case with [facility] rehab aide. Awaiting final discharge orders for pt. Pt did refuse therapy earlier today. PETRA discussed with Director of Case Mgmt. PETRA left voice message for pt's sister, Tabatha, to notify of anticipated discharge to 5N later today. PETRA is following to assist as needed with discharge planning.
[2018-04-23] MEDS ORDERED: LEVAQUIN 500 M500 M2 PO (16:49)
[2018-04-23] MEDS ORDERED: PACERONE 200 M200 M1 PO (16:49)
--- NOTE | 2018-04-23 17:02 | NUR ---
PATIENT WAS TO BE ADMITTED TODAY FOR ACUTE REHAB STAY. DUE TO PATIENT BEING ON IV MEDICATION REQUIRING TELE MONITORING, PATIENT HAD TO REMAIN IN ACUTE CARE. WILL FOLLOW AND ARRANGE FOR ADMISSION WHEN PATIENT IS MEDICALLY READY.
--- NOTE | 2018-04-23 18:06 | NUR ---
SINCE VISITING WITH NEUROLOGIST PT HAS CEASED TO HAVE "SEIZURES". HE IS RESTING COMFORTABLY AT THIS TIME. REPORTS VERY LITTLE PAIN TO HIS CHEST. DENIES SHORTNESS OF BREATH. REMAINS IN UNSTABLE AFIB, AMIO DRIP INFUSING. WILL CONTINUE TO MONITOR.
--- NOTE | 2018-04-24 04:31 | NUR ---
Pt. requested tylenol for generalized discomfort at HS with some relief. He slept fair during the night. O2 at 4L/NC with O2 sat > 90%. Shortness of breath with exertion. A fib with controlled rate at rest then tachycardic when up to commode. Cont. on amiodarone gtt. No seizure activities reported. Up with assist to commode to void and had bm. Refused stool softener last night. Making progress towards care plan goals.
[2018-04-24 05:40] VITALS: BP 120/84
[2018-04-24 07:43] VITALS: BP 130/88
--- NOTE | 2018-04-24 10:22 | NUR ---
Reviewed meds and cardiology notes this morning. Case was discussed with Whitney Hobbs NP conservation agent for Rehab, and it was determined that this patient is on IV Digoxin, IV Amiodarone, and requires Tele monitoring. He is currently not safe to participate in 3 hours of therapy per day, and is not safe to go off of the Tele monitor, per discussion with YAMILKA Olson, as well as pt's NILE Castillo, and per Cardiology notes from this morning. We will continue to folow him through the weekend and will consider admission once he is cleared by the Cdl A Driver and deemed safe to go off the tele monitor, with stabilization of his heart rate and BP.
[2018-04-24 11:59] VITALS: BP 114/87
[2018-04-24 16:24] VITALS: BP 121/81
[2018-04-24 20:22] VITALS: BP 114/71
--- NOTE | 2018-04-25 03:54 | NUR ---
Pt. slept fair during the night. Tylenol given at HS and this am for generalized pain with good relief. No seizure activities. Bed alarm on and calls appropriately for assistance. A fib with controlled rate , cont. on amiodarone gtt. BP stable. Tachycardic with activities. Making progress towards care plan goals.
[2018-04-25 04:45] VITALS: BP 112/77
[2018-04-25 06:06] LABS: HEMATOCRIT 34.6 % (42.0-52.0); HEMOGLOBIN 11.4 gm/dL (14.0-18.0); MCV 88.1 fL (80.0-100.0); RBC 3.93 mil/uL (4.50-6.00); RDW 16.1 % (10.5-14.5); WBC 7.2 thou/uL (4.0-11.0)
[2018-04-25 06:23] LABS: CALCIUM 8.2 mg/dL (8.5-10.1); CREATININE 0.7 mg/dL (0.7-1.3); POTASSIUM 4.1 mmol/L (3.5-5.1)
[2018-04-25 07:44] VITALS: BP 100/59
[2018-04-25 21:10] VITALS: BP 122/82
--- NOTE | 2018-04-26 05:21 | NUR ---
PT ANXIETY LEVEL IS HIGH DUE HIS TREMORS HE IS HAVING AND WORRING ABOUT WHEN HE IS GOING TO GET HIS KEPPRA. DISCUSSED WITH PT THAT HE GETS THAT MEDICATION TWO TIMES A DAY AT 0900 AND 1700. PT STATES THE BED IS UNCOMFORTABLE AND WOULDN'T PAY FOR ONE. PT ALSO WANTS THE DOOR TO HIS ROOM TO BE LEFT OPEN. FOLLOWING POC WITH IVPB ANTIBIOTICS AND CONTROLING AFIB. POSSIBLE DC TO 5N IF AFIB IS UNDER CONTROL. HOURLY ROUNDING.
[2018-04-26 05:30] VITALS: BP 124/79
[2018-04-26 05:43] LABS: HEMATOCRIT 36.5 % (42.0-52.0); HEMOGLOBIN 12.1 gm/dL (14.0-18.0); MCH 29.1 pg (26.0-34.0); MCV 88.1 fL (80.0-100.0); RBC 4.15 mil/uL (4.50-6.00); RDW 16.2 % (10.5-14.5); WBC 6.4 thou/uL (4.0-11.0)
[2018-04-26 05:59] LABS: CALCIUM 8.3 mg/dL (8.5-10.1); CREATININE 0.8 mg/dL (0.7-1.3); POTASSIUM 4.2 mmol/L (3.5-5.1)
[2018-04-26 08:44] VITALS: BP 104/75
--- NOTE | 2018-04-26 12:29 | NUR ---
PETRA reviewed chart and spoke with nursing and attending physician. Pt went into A-fib and was started on amiodrone gtt. Awaiting cardiology clearance for pt to go to 5N. PETRA met with pt at bedside to provide update and discuss discharge plan. Pt is aware and agreeable with discharge plan. PETRA left voice message for pt's sister, Tabatha, to provide update. PETRA is following to assist as needed with discharge planning.
[2018-04-26 15:02] VITALS: BP 114/84
--- NOTE | 2018-04-26 18:49 | NUR ---
PATIENT ALERT AND ORIENTED WITH COMPLAINTS OF SEIZURES. PATIENT STATES HE IS HAVING SEIZURE, BUT APPEARS TO BE HAND TREMORS AND SAYS SEIZURES ARE INITIATED BY STRESS. HE ALSO INDICATED HIS HEART RATE ELEVATES WHEN WATCHING TV WITH A LOT OF ACTION. PATIENT STAYED IN BED MOST OF THE DAY BECAUSE HE DIDN'T WANT TO HAVE A SEIZURE. PATIENT WAS ABLE TO WALK TO BATHROOM AND STATED HE HAD A VERY LARGE BOWEL MOVEMENT. NEW IV WAS STARTED AND EDUCATED PATIENT THAT IT'S OK TO FEEL COOLNESS WITH IV.
[2018-04-26 18:58] VITALS: BP 100/72
--- NOTE | 2018-04-26 23:04 | NUR ---
RECEIVING RN (NOEMI) STATED "I KNOW THIS PT, I DON'T NEED A REPORT FROM YOU." PT REPORT NOT GIVEN DUE TO REFUSAL OF THE RECEIVING RN - CONFIRMED WITH THE RECEIVING RN AT 1614.
--- NOTE | 2018-04-26 23:47 | NUR ---
ASSUMED CARE FOR PT AT 2300 AFTER PRIMARY NURSE LEFT. I HAVE GIVEN CARE FOR PT PREVIOUSLY AND FAMILIAR WITH PT. PERFORMED FORCUS ASSESSMENT AND GOT 2100 & 2200 MEDICATIONS AND GAVE TO PT. PT IN GOOD SPIRITS AND WATCHING THE "PATRIOT". WILL CONTINUE TO ROUND HOURLY AND ASSESS.
[2018-04-27 04:12] VITALS: BP 107/78
[2018-04-27 07:56] VITALS: BP 102/69
[2018-04-27 11:23] VITALS: BP 158/132
[2018-04-27 15:33] VITALS: BP 94/69
[2018-04-27] MEDS ORDERED: LEVAQUIN 500 M500 M2 PO (15:42)
[2018-04-27] MEDS ORDERED: FLAGYL500 M1 PO (15:43)
[2018-04-27] MEDS ORDERED: DIGOXIN125 MCG PO (15:44)
[2018-04-27] MEDS ORDERED: METOPROLOL SUCC50 MG PO (15:46)
[2018-04-27] MEDS ORDERED: ATIVAN0.5 MG PO (15:48)
--- NOTE | 2018-04-27 16:08 | NUR ---
PT ALERT AND ORIENTED TIMES FOUR. VSS, 98%5L. PT DENIES PAIN/SOA. PT TOLERATES MEDS AND MEALS. PT WORKED WELL PT/OT WALKING IN HIS ROOM. PLANS FOR TERANSFER TO [facility] TODAY. PT PROGRESSING TOWRADS POC GOALS.
--- NOTE | 2018-04-27 16:12 | NUR ---
DISCHARGE NOTE: PETRA reviewed chart and spoke with nursing and attending physician. Pt is medically stable for discharge to 5N today. Pt will move to room 514. SW left voice message for pt's sister, Tabatha, to provide update and notify of pt's new room number. Pt agreeable with discharge plan. Rehab CM to follow and assist as needed with discharge planning.
== END 2018-04-27 17:12 | DRG 871 ==
LOC: 3W 10:13 → ENTRNSPT 04-27 16:29 → 3W 04-27 17:12
PROVIDERS: Hospitalist; Nurse Practitioner; Nurse Practitioner Family; ADMIT Hospitalist
DX: A41.9 Sepsis, unspecified organism (principal); J96.20 Acute and chronic respiratory failure, unspecified whether with hypoxia or hypercapnia; K92.2 Gastrointestinal hemorrhage, unspecified; D62 Acute posthemorrhagic anemia; J44.1 Chronic obstructive pulmonary disease with (acute) exacerbation; A09 Infectious gastroenteritis and colitis, unspecified; I48.2 Chronic atrial fibrillation; E78.5 Hyperlipidemia, unspecified; N40.0 Benign prostatic hyperplasia without lower urinary tract symptoms; K52.9 Noninfective gastroenteritis and colitis, unspecified; G40.909 Epilepsy, unspecified, not intractable, without status epilepticus; F32.9 Major depressive disorder, single episode, unspecified; F41.9 Anxiety disorder, unspecified; E86.0 Dehydration; I10 Essential (primary) hypertension; I95.9 Hypotension, unspecified; J84.112 Idiopathic pulmonary fibrosis; Z60.2 Problems related to living alone; I95.1 Orthostatic hypotension; G89.4 Chronic pain syndrome; R25.1 Tremor, unspecified; L01.00 Impetigo, unspecified; I80.8 Phlebitis and thrombophlebitis of other sites; Z91.012 Allergy to eggs; Z87.891 Personal history of nicotine dependence; Z83.3 Family history of diabetes mellitus; Z80.8 Family history of malignant neoplasm of other organs or systems; Z79.82 Long term (current) use of aspirin; Z79.899 Other long term (current) drug therapy; Z79.01 Long term (current) use of anticoagulants
CPT/HCPCS: 10879

== ENCOUNTER 2018-04-23 16:18 | Inpatient (IN) | payer OTHER ==
[~2018-04-23] VITALS: Ht 190.5 cm; Wt 101.3 kg
[2018-04-23] MEDS ORDERED: LEVAQUIN 500 M500 M2 PO (16:49)
[2018-04-23] MEDS ORDERED: PACERONE 200 M200 M1 PO (16:49)
[2018-04-27] MEDS ORDERED: LEVAQUIN 500 M500 M2 PO (15:42)
[2018-04-27] MEDS ORDERED: FLAGYL500 M1 PO (15:43)
[2018-04-27] MEDS ORDERED: DIGOXIN125 MCG PO (15:44)
[2018-04-27] MEDS ORDERED: METOPROLOL SUCC50 MG PO (15:46)
[2018-04-27] MEDS ORDERED: ATIVAN0.5 MG PO (15:48)
[2018-04-27 20:00] VITALS: BP 100/72
--- NOTE | 2018-04-27 20:20 | NUR ---
ASSUMED CARE AT APPROX 1700. PATIENT A/O X4. C/O CHEST PAIN, PATIENT STATED "IT'S MY PULMONARY FIBROSIS." PROVIDER NOTIFIED, PAIN MEDICATION ORDERS RECEIVED. MEDS FAXED TO PHARMACY. PATIENT SIGNED CONSENTS. PATIENT MEDICATED FOR PAIN AND SCHEDULED ANTI-SEIZURE MEDICATION. PATIENT HAD DINNER. REFUSED ADMISSION ASSESSMENT AT THAT TIME, NIGHT RN NOTIFIED. FALL PRECAUTIONS IN PLACE, SEIZURE PRECAUTIONS IN PLACE. CALL LIGHT IN REACH. PATIENT CALLED APPROPRIATELY FOR ASSISTANCE. RESTING IN BED AT SHIFT CHANGE.
[2018-04-28] VITALS (7 sets, daily range): BP systolic 84–106; BP diastolic 37–69
--- NOTE | 2018-04-28 02:25 | NUR ---
PIVOT ASSIST TO BSC FOR LARGE VOID ONLY. ATIVAN GIVEN AT HS, AMLACTIN TO DRY SKIN ON FOREARMS. SALINE LOCK IN LEFT WRIST. BINDER AND TREVOR HOSE OBTAINED FOR PATIENT TO WEAR WHEN OUT OF BED. HEART RATE IRREGULAR
[2018-04-28 05:45] LABS: HEMOGLOBIN 11.4 gm/dL (14.0-18.0); MCH 29.2 pg (26.0-34.0); MCHC 33.6 g/dL (28.0-37.0); MCV 86.9 fL (80.0-100.0); RBC 3.91 mil/uL (4.50-6.00); RDW 15.9 % (10.5-14.5); WBC 7.5 thou/uL (4.0-11.0)
[2018-04-28 06:09] LABS: CALCIUM 7.8 mg/dL (8.5-10.1); CREATININE 0.9 mg/dL (0.7-1.3); POTASSIUM 4.3 mmol/L (3.5-5.1)
--- NOTE | 2018-04-28 09:30 | NUR ---
chart review. pt back to 5 n from acute with afib. cm tried to visit with pt at bedside, he would track cm voice and pt checking o2 stat. pt on oxygen per nasal cannula. noted when would ask pt to try and look at cm his head and arms would start to shack. intro to cm, transition of care , home health, post acute rehabu, team meeting " i will not go back to facility i was at"/dario. then adrio would start to shack some more. cm letting him rest and work with therapy. cm left message for sister mercy. per chart prior to snf at [facility], pt lived in duplex alone, 2 steps to enter 14 stair to bedroom. was on food stamps and might need to get them restarted. has walker and home o2 from [facility]. would like to get closer to [place] per chart. will cont following as needed for dc needs.
--- NOTE | 2018-04-28 16:02 | NUR ---
ASSUMED CARES AT 0700. PT ALERT AND ORIENTED*4. C/O NON-CARDIAC CHEST PAIN, PAIN MEDICATION ADMINISTERED NEEDED. PT'S BP LOW ALL DAY TODAY, 500CC NS BOLUS AMINISTERED PER OUTBOUND SALES PROFESSIONAL ORDER SINCE PT WAS SYMPTOMATIC WITH THE LOW BP. PT CONTINUES TO HAVE PSEUDOSEIZURES, INCREASED WITH ACTIVITY, SEIZURE PRECAUTIONS IN PLACE. PT ABLE TO PARTICIPATE IN SOME ACTVITIES BUT MOSTLY LOW ENDURANCE. ABDOMINAL BINDER IN PLACE WITH ALL TRANSFERS AND WHEN SITTING UP IN CHAIR. ARMS (BILATERAL) REMAIN SWOLLEN AND BRUISED FROM IV INFILTRATION PRIOR TO ADMIN. TO REHAB, MONITORING AND ELEVATING NEEDED. PIV ON WRIST LEFT REMAINS PATENT AND INTACT, DRESSING FASTENED SINCE IT WAS COMING LOOSE. PT UP WITH 1 PERSON MIN ASSIST, GAITBELT AND WALKER. ON 5L O2 VIA NC WITH SATS >95%. Q1H VISUAL CHECKS. CALL LIGHT WITHIN REACH. FALL PRECAUTIONS IN PLACE
[2018-04-29 01:31] VITALS: BP 89/65
--- NOTE | 2018-04-29 03:34 | NUR ---
BLOOD PRESSURE REMAINS STEADY AT 90/65. UP TO [facility] FOR LARGE VOID AND LARGE BM. NO DIZZINESS, WEAKNESS, OR FATIGUE NOTED DURING PIVOT TRANSFER TO [facility] OR WHILE SITTING UP FOR 10-15 MINUTES. PAIN PILL HELPFUL FOR PAIN IN ARMS AND BACK. RIGHT ARM REMAINS WARM AND SWOLLEN, ALSO HAS FIRM VEIN ON LEFT ANTERIOR FOREARM. DECLINES OFFER OF ICE PACK OR WARM MOIST PACK TO EITHER ARM. REFUSES AMLACTIN LOTION TO DRY SKIN AREAS. ALSO AVOIDING AMIODARONE WHILE BP IS LOW IT IS.
[2018-04-29 08:14] VITALS: BP 91/49
--- NOTE | 2018-04-29 15:00 | NUR ---
ASSUMED CARES AT 0700. PT ALERT AND ORIENTED*4, MULTIPLE BEHAVIORAL CONCERNS NOTED PSEUDO-SEIZURES. BP REMAINS LOW AND DROPS TO SBP 70'S WHEN PATIENTS SITS UP OR STANDS UP. PT SYPTOMATIC WITH LOW BP'S C/O DIZZINESS AND LIGHT HEADEDNESS. SPICE CLEANER CONSULTED AND ORDERS RECEIVED, 250CC OF NS ADMINISTERED ORDERED. PT C/O NON-CARDIAC CHEST PAIN, HYDROCODONE ADMINISTERED NEEDED. PT CONTINUES TO HAVE BRUISES AND INFILTRATION SITES ON BILATERAL ARMS, IMPROVEMENT NOTED FROM PREVIOUSLY NOTED. PT UNABLE TO PARTICIPATE FULLY WITH THERAPY R/T LOW BP'S. PYSCHIATRIST CONSULTED AND HERE TO SEE PT. PT REQUIRING BREATHING TREATMENTS MORE FREQUENTLY, Q4-5HRS. Q1H VISUAL CHECKS. CALL LIGHT WITHIN REACH. FALL PRECAUTIONS IN PLACE AND HERE TO SEE PT
[2018-04-29 15:31] VITALS: BP 91/60
[2018-04-29 19:23] VITALS: BP 95/58
[2018-04-30] VITALS (9 sets, daily range): BP systolic 82–131; BP diastolic 58–82
--- NOTE | 2018-04-30 00:05 | NUR ---
PT ASSESSMENT COMPLETED AND VSS. BP MUCH BETTER THIS EVENING. MEDS GIVEN ORDERED. UP TO BSC WITH ASST. PRN PAIN MEDICATION WORKING WELL. RT TX CONTINUE. SAT WNL ON 5L NC. SLEEPING. FALL PRECAUTIONS IN PLACE. WILL CONTINUE TO MONITOR FREQUENTLY.
--- NOTE | 2018-04-30 10:55 | NUR ---
JULIANA, FARM OPERATIONS MANAGER WORKING WITH PT IN ROOM, AND PT WAS OVERHEARD C/O NAUSEA WHILE SEATED IN THE RECLINER. CAME INTO ROOM TO ASSIST AND OFFERED OLFACTORY DIVERSION FROM ASEPTIC SWAB TO REDUCE NAUSEA, BUT THIS WAS NOT NEEDED. DISCUSSED WITH PT THAT HIS MEDICAL DEBILITY WAS IN PART DUE TO DECONDITIONING AND ORTHOSTASIS CAN IMPROVE WITH OUR INTERVENTIONS AND HIS COOPERATION WITH INCREASED ACTIVITY. DISCUSSED LENGTH OF STAY, WELL THE REQUIREMENT ON REHAB FOR 3 H OF THERAPY PER DAY, AND PT VERBALIZED UNDERSTANDING. HE STATED THAT HE WANTS TO TRY, BUT THAT THE BINDER MAKES HIM HAVE SHAKING SPELLS. PT HAD REMOVED THE BINDER, AND WITHOUT THIS, HE WAS ABLE TO TOLERATE STANDING, MARCHING IN PLACE, AND TAKING STEPS TO THE BED AND PIVOTING BEFORE BECOMMING DYSPNEIC AND BEGINNING TO SHAKE, THEN STATING THAT HE NEEDED TO SIT ON THE BED. NOTED BP WAS INITIALLY 88/62 WHEN FIRST STANDING, AND ON SECOND CHECK WHILE SITTING WAS 92/62. HEART RATE WAS VARIABLE, HIGHEST 114 AND LOWEST IN 80'S. NOTED THAT WHILE STANDING AND SHAKING, PT HAD DYSPNEA AND WAS PANTING WHILE ON 5L NC. THIS WAS INCREASED TO 6L AND PT GIVEN CUES TO TAKE SLOW DEEP BREATHS IN THROUGH NOSE AND PURSED LIP BLOW OUT. SATS QUICKLY INCREASED TO 90'S, AND PT AGREED TO WORK AGAIN WITH FARM OPERATIONS MANAGER ON STANDING AND WALKING IN THE ROOM. NOTED TO PT THAT HIS BP'S WERE IMPROVED FROM YESTERDAY, AND PT VERBALIZED SATISFACTION THAT HE WORKED WELL THIS SESSION WITH FARM OPERATIONS MANAGER.
--- NOTE | 2018-04-30 17:40 | NUR ---
ASSUMED CARE AT APPROX 0715. PATIENT A/O X4. UP X1 ASSIST GB AND WALKER TO TOILET, COMMODE OVER STOOL. PARTICIPATED IN THERAPY. ORTHOSTATIC BP'S OBTAINED. PATIENT COMPLIANT WITH THIGH HIGH TEDS AND ABDOMINAL BINDER WHILE STANDING, BINDER REMOVED WHEN PATIENT IS AT REST. PATIENT REQUESTING PRN BREATHING TREATMENTS AND PAIN MEDICINE Q6H. CARDIAC MEDICATIONS ADJUSTED PER CARDIOLOGY, CALLED TO CLARIFY ORDERS, NO NEW ORDERS RECEIVED. ORTHOSTATIC BP'S CHARTED, PROVIDER AWARE. FALL PRECAUTIONS IN PLACE. PATIENT RESTING IN BED AT CHANGE OF SHIFT. WILL CONTINUE TO MONITOR.
--- NOTE | 2018-05-01 02:50 | NUR ---
APPRECIATES PAIN PILL AND ATIVAN IN THE EVENING THEY HAVE HELPED HIM GET SOME SLEEP. STAND PIVOTS TO BSC FOR LARGE VOID. NEEDS LESS HELP RETURNING TO BED AND IS ABLE TO GET BOTH LEGS UP IN BED HIMSELF.
[2018-05-01 08:25] VITALS: BP 123/76
--- NOTE | 2018-05-01 14:31 | NUR ---
ASSUMED CARE AT APPROX 0715. REPORTS SLEPT GOOD LAST NIGHT. PATIENT A/O X4. UP X1 ASSIST GB AND WALKER. PREFERS TO USE BSC RATHER THAN TOILETING D/T DIZZINESS. PARTICIPATED IN THERAPY. ORTHOSTATIC BP'S OBTAINED. PATIENT NOT COMPLIANT WITH THIGH HIGH TEDS AND ABDOMINAL BINDER WHILE STANDING. PATIENT REQUESTING PRN BREATHING TREATMENTS AND PAIN MEDICINE Q6H. NOTIFIED DR. GRANADOS TO CHANGE PRN TO QID SCHEULE SINCE PT STILL HAS SOB AND COARSE LUNG SOUNDS. ACHS D/C SINCE PT IS OFF STEROID NOW. CONTINUE TO BE ON ORAL ABT. HAD LARGE SOFT BM THIS AM. IV ON LEFT WRIST INFILTRATED AND REMOVED. PT HAS ONE RAISE BRUISE DOT ON RIGHT FOREARM, NO SIGN OF INFECTION AT THIS MOMENT, HAS LITTLE BLEEDING, COVERED WITH BORDER OPTIFOAM. C/O HEADACHE 09/18 AFTER HAD PHYSICAL THERAPIST SESSION. PRN HYDROCODONE GIVEN. PT WAS ANXIOUS, ATIVAN PRN GIVEN EARLIER THIS AM. IT HAS BEEN EFFECTIVE. PT HAS BEEN CALM AND PARTICIPATE WELL WITH THERAPY TODAY. OT GAVE SPONGE BATH THIS AM. HAS BRIGHT AFFECT, ANXIOUS AT TIME, OFFERED SUPPORTIVE CARE, ENCOURAGED DEEP BREATHING AND VOICE HIS NEEDS.FALL PRECAUTIONS IN PLACE. PATIENT RESTING IN RECLINER AT THIS MOMENT. SAT 98% ON 5L. VSS, MEDS GIVEN AND TAKEN ORDERED. . WILL CONTINUE TO MONITOR.
[2018-05-01 19:25] VITALS: BP 119/79
--- NOTE | 2018-05-02 03:00 | NUR ---
APPRECIATES ATIVAN, PAIN PILL, AND BREATHING TREATMENT LAST EVENING. UP TO BATHROOM WITH WALKER, GAIT BELT, STANDBY ASSIST, AND OXYGEN WITH EXTENSION TUBING. VOIDS WELL SITTING ON TOILET NOW
[2018-05-02 07:30] VITALS: BP 120/78
[2018-05-02 10:00] VITALS: BP 110/69
[2018-05-02 10:02] VITALS: BP 97/75
[2018-05-02 10:04] VITALS: BP 71/60
--- NOTE | 2018-05-02 16:40 | NUR ---
ASSUMED CARE AT APPROX 0715. PATIENT A/O X4. C/O CHEST PAIN, NON-CARDIAC, PAIN MEDICATION ADMINISTERED AVAILABLE. UP X1 ASSIST GB AND WALKER, TRANSFERING TO [facility]. PARTICIPATED IN PHYSICAL THERAPY SESSION. SATS MAINTAINED ON 5-6 L PER NC. ORTHOSTATIC BP OBTAINED, PATIENT DENIED DIZZINESS, DID C/O TREMORS ONCE AFTER PHYSCIAL THERPY, NO OTHER TIMES THIS SHIFT. FALL PRECAUTIONS IN PLACE. PATIENT CALLS APPROPRIATELY FOR ASSISTANCE, CALL LIGHT IN REACH, WILL CONTINUE TO MONITOR.
[2018-05-02 19:25] VITALS: BP 113/73
--- NOTE | 2018-05-02 23:25 | NUR ---
PT ASSESSMENT COMPLETED AND VSS. MEDS GIVEN ORDERED AND WELL TOLERATED. FALL PRECAUTIONS IN PLACE. PRN PAIN MEDICATION WORKING WELL. DENIES NEEDS. SLEEPING WELL. WILL CONTINUE TO MONITOR FREQUENTLY.
[2018-05-03 08:30] VITALS: BP 100/70
--- NOTE | 2018-05-03 08:30 | NUR ---
PT IN PLEASANT MOOD TODAY. STATED HE HAS PAIN TO RT SIDE OF CHEST OF 6 ON 1-10 SCALE. OXYGEN ON 6L TOLERATING AT 97%. LUNGS CLEAR AND DIMINISHED TO BASES. HAS TREMORS. IRREGULAR HEART BEAT, PULSE 100 TO 130'S. PT STATED HE HAS AFIB. DENIES ANY DIZZINESS.
--- NOTE | 2018-05-03 10:38 | NUR ---
spoke with sister Tabatha who reports patient with need for cont post acute care trying to regulate blood pressure. Sister interested in referral to [facility] and [facility]. She reports she has spoken to brother who is not interested in returning to [facility]. He has asked to move in with sister but she already has another brother living in their home. She is interested in cont post acute care referral if needed at [place]. Team meeting in am to relay recommendations from team.
--- NOTE | 2018-05-03 13:00 | NUR ---
AFTER THERAPY PT WANTING A RT TX, THERAPY IS QID AND IF HE GETS RT AT THIS TIME HE WILL ONLY HAVE ONE MORE FOR EVENING. PT STATED HE WILL WAIT TILL SCHEDUALED TX. NO SIGNS OF RESP DISTRESS.
--- NOTE | 2018-05-03 15:24 | NUR ---
ADM NORCO 5MG ONE TAB FOR PAIN TO RT CHEST OF 7 ON 1-10 SCALE. PT SITTING UP IN CHAIR WATCHING TV.
--- NOTE | 2018-05-03 15:30 | NUR ---
FAXED REFERRAL TO [facility] SPOKE WITH REVA IN ADM. SHE RECEIVED REFERRAL AND WILL REVIEW. [place] [facility] [place] TO REVIEW REFERRAL AND ANTICIPATE DC 05/07.
--- NOTE | 2018-05-03 15:52 | NUR ---
[facility] [facility] [place] [facility] [place] MCNAIR THAT ANTICIPATE DC 05/07. DCP TO FOLLOW.
--- NOTE | 2018-05-03 18:48 | NUR ---
PT HAS DRANK 3 WATER PITCHERS TODAY. PT STATED HE DRINKS ALOT OF WATER.
[2018-05-03 19:38] VITALS: BP 129/87
--- NOTE | 2018-05-04 05:33 | NUR ---
CALLS FOR PIVOT ASSIST TRANSFER TO BSC FOR LARGE VOIDS AND A MODERATE SIZED SOFT BM. APPRECIATES ATIVAN AND PAIN MED FOR CHRONIC PAIN. O2 4L PNC
[2018-05-04 07:45] VITALS: BP 120/82
--- NOTE | 2018-05-04 10:46 | NUR ---
ASSUMED CARE AT APPROX 0715. REPORTS SLEPT GOOD LAST NIGHT. PATIENT A/O X4. UP X1 ASSIST GB AND WALKER. MORNING MEDS GIVEN WITH PRN ATIVAN. VSS ON 5L OF OXYGEN. HR 112. WILL NOTIFIFY DR. QUINTANILLA TO SEE IF PT CAN BE ON DIGOXIN PER HIS NOTE. BRUISE DOT ON RIGHT FOREARM, NO SIGN OF INFECTION AT THIS MOMENT, HAS LITTLE BLEEDING, COVERED WITH BORDER OPTIFOAM. DENIES HEADACHE. NON CARDIAC CHEST PAIN IS 3/10, SINCE HAD PRN HYDROCODONE THIS AM. PT STILL HAS DIZZINESS. NOTIFIED JOEY AND OBTAINED ORDER FOR PRN MECLINZINE. GAVE IT BEFORE THERAPIST SESSION. PT HAS BEEN CALM AND PARTICIPATE WELL WITH THERAPY TODAY. OT GAVE SPONGE BATH THIS AM. HAS BRIGHT AFFECT. DAILY WT. 223.3LBS BY STANDING SCALE. OFFERED SUPPORTIVE CARE, ENCOURAGED DEEP BREATHING AND VOICE HIS NEEDS.FALL PRECAUTIONS IN PLACE. PT IS WALKING ON URIAS WITH PHYSICAL THERAPIST AT THIS MOMENT. WILL CONTINUE TO MONITOR.
--- NOTE | 2018-05-04 13:21 | NUR ---
team meeting, recommendation : dc 05/10/18 if medically stable with ortho bp, look at skilled options. referrals sent alfie smith and pradeep smith.
[2018-05-04 19:30] VITALS: BP 125/63
[2018-05-04 23:32] VITALS: BP 108/75
--- NOTE | 2018-05-05 02:45 | NUR ---
UP TO BSC WITH STAND PIVOT ASSIST, APPRECIATES PAIN MED AND ATIVAN AT BEDTIME. IV SALINE LOCK STARTED FOR 2 DOSES OF DIGOXIN, WILL CHECK DIG LEVEL AT 0600. O2 CONTINUOUSLY
[2018-05-05 07:30] VITALS: BP 102/70
--- NOTE | 2018-05-05 11:32 | NUR ---
ASSUMED CARE AT APPROX 0715. REPORTS SLEPT GOOD LAST NIGHT. C/O NON CARDIAC CHEST PAIN / AND HEADACHE. GAVE PRN HYDROCODONE PER REQUEST.PATIENT A/O X4. UP X1 ASSIST GB AND WALKER. MORNING MEDS GIVEN WITH PRN MECLIZINE. HE SAID IT HELPED. VSS ON 5L OF OXYGEN. BRUISE DOT ON RIGHT FOREARM, RESOLVED PT HAS BEEN CALM AND PARTICIPATE WELL WITH THERAPY TODAY WITHOUT NEED OF ATIVAN. OFFERED SUPPORTIVE CARE, ENCOURAGED DEEP BREATHING AND VOICE HIS NEEDS.VSS ON 5L OF OXYGEN. REFUSED TO GO TO DINING FOR MEALS, HE SAID HE STILL HAS TREMORS. CONTINUE TO BE ON KEPPRA DAILY. NIGHT RN GAVE 2 DOSES OF IV DIGOXIN PER ADJUNCT SPANISH INSTRUCTOR. IV ON RIGHT HAND FELL OFF THIS AM DURING OT SESSION.DIGOXIN LEVEL 1.3 TODAY. HEART RATE IS STABLE PER CARDILOGIST'S VIEW. DR. HIGGINBOTHAM IS HERE AND WILL SWISH TO DIGOXIN PO TODAY. NOTIFIED CARDILOGIST THAT PT WILL BE D/C NEXT THURSDAY. DOCTOR WANTS TO SEE PT WITHIN 3 WEEKS AFTER DISCHARGE. WILL GIVE REPORT TO NIGHT NURSE TO CONTINUE TO MONITOR AND PUT ORDER IN [facility] FOR FOLLOW UP APPOINTMENT. FALL PRECAUTIONS IN PLACE. WILL CONTINUE TO MONITOR.
--- NOTE | 2018-05-05 14:01 | NUR ---
Patient participated in community reintegration on 05/05/18 with Physical Therapy. Refer to documentation by PT.
--- NOTE | 2018-05-05 18:02 | NUR ---
ASSUMED CARE AT APPROX 0715. REPORTS SLEPT GOOD LAST NIGHT. C/O NON CARDIAC CHEST PAIN / AND HEADACHE. GAVE PRN HYDROCODONE PER REQUEST.PATIENT A/O X4. UP X1 ASSIST GB AND WALKER. MORNING MEDS GIVEN WITH PRN MECLIZINE. HE SAID IT HELPED. VSS ON 5L OF OXYGEN. BRUISE DOT ON RIGHT FOREARM, RESOLVED PT HAS BEEN CALM AND PARTICIPATE WELL WITH THERAPY TODAY WITHOUT NEED OF ATIVAN. OFFERED SUPPORTIVE CARE, ENCOURAGED DEEP BREATHING AND VOICE HIS NEEDS.VSS ON 5L OF OXYGEN. REFUSED TO GO TO DINING FOR MEALS, HE SAID HE STILL HAS TREMORS. CONTINUE TO BE ON KEPPRA DAILY. NIGHT RN GAVE 2 DOSES OF IV DIGOXIN PER MEDICAL CONCIERGE. IV ON RIGHT HAND FELL OFF THIS AM DURING OT SESSION.DIGOXIN LEVEL 1.3 TODAY. HEART RATE IS STABLE PER CARDILOGIST'S VIEW. DR. HIGGINBOTHAM IS HERE AND WILL SWISH TO DIGOXIN PO TODAY. NOTIFIED CARDILOGIST THAT PT WILL BE D/C NEXT THURSDAY. DOCTOR WANTS TO SEE PT WITHIN 3 WEEKS AFTER DISCHARGE. WILL GIVE REPORT TO NIGHT NURSE TO CONTINUE TO MONITOR AND PUT ORDER IN [facility] FOR FOLLOW UP APPOINTMENT. FALL PRECAUTIONS IN PLACE. WILL CONTINUE TO MONITOR.
[2018-05-05 19:20] VITALS: BP 94/59
--- NOTE | 2018-05-05 21:48 | NUR ---
PT ASSESSMENT COMPLETED AND VSS. MEDS GIVEN ORDERED AND WELL TOLERATED. FALL PRECAUTIONS IN PLACE. UP TO THE BSC WITH ASST/GAIT. STEADY. SLEEPING WELL. WILL CONTINUE TO MONITOR FREQUENTLY.
--- NOTE | 2018-05-06 06:00 | NUR ---
PT VERY UPSET THIS MORNING BECAUSE HE WANTED TO BE LEFT ALONE IN THE ROOM TO VOID. HE WAS STANDING AND THEN SITTING ON THE BSC. EXPAINED TO THE PATIENT THAT IT IS ONE OF OUR RULES ON THE UNIT. WE ARE NOT ALOUD TO LEAVE THE ROOM WHEN A PATIENT IS GOING TO THE BATHROOM WITH A YELLOW BELT. ALSO, BECAUSE OF HIS HYPOTENSION HE IS AT RISK FOR A FALL. PT STATES THAT HE HAS TROUBLE VOIDING WHEN SOMEONE IS IN THE ROOM. WILL HAVE DAY RN TALK WITH THERAPY ABOUT THIS TO SEE IF THERE IS SOMETHING THAT CAN BE DONE FOR THIS PATIENT.
[2018-05-06 06:21] LABS: HEMATOCRIT 36.8 % (42.0-52.0); MCH 28.7 pg (26.0-34.0); MCHC 32.7 g/dL (28.0-37.0); PLATELET COUNT 237 thou/uL (150-400); RBC 4.19 mil/uL (4.50-6.00); RDW 16.7 % (10.5-14.5)
[2018-05-06 06:50] LABS: CALCIUM 8.7 mg/dL (8.5-10.1); CREATININE 0.9 mg/dL (0.7-1.3); MAGNESIUM 1.7 mg/dL (1.8-2.4); POTASSIUM 4.6 mmol/L (3.5-5.1)
[2018-05-06 08:00] VITALS: BP 114/89
[2018-05-06 08:33] LABS: ABSOLUTE NEUTROPHILS 2.3 thou/uL (1.4-8.2); PLATELET ESTIMATE NORMAL
--- NOTE | 2018-05-06 12:26 | NUR ---
ASSUMED CARES AT 0700. PT AWAKE, ALERT AND ORIENTED *4. C/O RIGHT HIP PAIN AND NON-CARDIAC CHEST PAIN 08/18, PAIN MEDICATION ADMINISTERED NEEDED. VITALS REMAINED STABLE FOR THIS PATIENT. BP STABLE, PT DENIES DIZZINESS. NO TREMORS/ PSEUDOSEIZURES NOTED. PT REMAINS ON 5L O2 VIA NC, LS CLEAR, O2 SATS >95%. PT UP WITH 1 PERSON MIN ASSIST, GAITBELT AND WALKER AND TOLERATED WELL. Q1H VISUAL CHECKS, CALL LIGHT WITHIN REACH, FALL PRECAUTIONS IN PLACE
[2018-05-06 20:38] VITALS: BP 119/66
--- NOTE | 2018-05-07 01:06 | NUR ---
PT ASSESSMENT COMPLETED AND VSS. MEDS GIVEN ORDERED AND WELL TOLERATED. FALL PRECAUTIONS IN PLACE. UP TO BSC WITH ASST/GAIT. STEADY. SLEEPING WELL. DENIES NEEDS. WILL CONTINUE TO MONITOR FREQUENTLY.
[2018-05-07 07:51] VITALS: BP 134/86
--- NOTE | 2018-05-07 09:32 | PLAN ---
[facility] [address] [place] [address] REHAB UNIT PLAN OF CARE Name: IKER GAY Room #: 511-P ADM IN M.R.#: [id number] Admission: 04/27/18 ������������������ Attend Phys: Krishna Chavez MD Discharge: ������������������ Date of : 46 Report #: [id number] THIS REPORT FOR: //name// CC: Krishna Galvin DATE OF SERVICE: 04/30/2018 PROGRESS NOTE/OVERALL PLAN OF CARE SUBJECTIVE: The patient is him seen back today in followup. No new complaints. Temperature 36.4, pulse 92, respirations 21, blood pressure 107/59. Appreciate Psychiatry seeing him with adjustment in medications. He is continuing in therapies with transfers, contact guard, gait 10 feet min assist front-wheeled walker. In occupational therapy, lower body dressing has been mod assist, upper body, min assist. ASSESSMENT: 1. Acute on chronic respiratory failure. 2. Pseudoseizures. 3. Symptomatic orthostatic hypotension. 4. Acute exacerbation of chronic obstructive pulmonary disease. 5. Colitis. 6. Impetigo. 7. Atrial fibrillation with previous problems with rate control. 8. Pulmonary fibrosis. 9. Benign prostatic hypertrophy. 10. Chronic pain syndrome. 11. Anxiety disorder with mood disorder. Psychiatry is involved. PLAN: The overall plan of care is based on the preadmission screen, post-admission physician evaluation and information garnered from therapy assessments. 1. Estimated length of stay is probably at least 2-3 weeks and likely longer pending progress. 2. Medical prognosis is reasonably good. He does have multiple medical comorbidities that he has been closely monitored. 3. Anticipated interventions includes the interdisciplinary acute inpatient rehabilitation program. 4. Anticipated functional outcomes would be for the patient to become modified independent with transfers, mobility and ADLs, so he can hopefully return back to his prior living situation. 5. Discharge destination, he lives in a house alone, but he did have people come in with the help for cleaning and cooking 4 days a week. He is going to need more assistance than that, but will need to see how much he improves functionally. [facility] [address] [place] [address] REHAB UNIT PLAN OF CARE Name: VICTOR HUGOIKER Room #: 511-P ADM IN M.R.#: [id number] Admission: 04/27/18 ������������������ Attend Phys: Krishna Chavez MD Discharge: ������������������ Date of : 48 Report #: [id number] 6. Expected therapy by discipline includes PT and OT 1-1/2 hours per day spread throughout the low endurance 7-day program as he needs the low endurance program. ADDENDUM He did miss 10 minutes of therapy yesterday. There was question of another pseudoseizure. We will monitoring his blood pressure and Psychiatry was involved in evaluating him. ��������������������������������������������� <ELECTRONICALLY SIGNED> ���������������������������������������� By: Krishna Chavez MD ��������������������������������������������� 05/07/18 0932 [id number] [id number] Krishna Chavez MD /nt
--- NOTE | 2018-05-07 09:32 | H ---
[facility] [place] [address] [place] [address] HISTORY AND PHYSICAL Name: IKER GAY Room #: 511-P ADM IN M.R.#: [id number] Admission: 04/27/18 ������������������ Attend Phys: Krishna Chavez MD Discharge: ������������������ Date of : 48 Report #: [id number] THIS REPORT FOR: //name// CC: Krishna Galvin DATE OF SERVICE: 04/27/2018 HISTORY AND PHYSICAL/POST ADMISSION PHYSICIAN EVALUATION: HISTORY OF PRESENT ILLNESS: The patient is a 68-year-old white male previously known to us, originally on rehabilitation from 04/13/2018 through 04/18/2018 for pulmonary rehabilitation, acute on chronic respiratory failure, symptomatic orthostatic hypotension, atrial fibrillation, acute exacerbation of chronic obstructive pulmonary disease and pulmonary fibrosis. He had prior problems with hypotension, was having difficulty tolerating beta blockers, continued to be dizzy standing and had loose stools. It was felt he would be better, transferred to the acute Med/Surg peterson to control his atrial fibrillation and blood pressure and he was transferred off the acute inpatient rehab peterson. During his acute hospitalization, he underwent an abdominal radiographic evaluation, was diagnosed with colitis. This was monitored. He had noted pseudoseizures as per Neurology and was awake while he was having some shaking episodes. He also was treated with IV amiodarone for better control of his atrial fibrillation. Cardiology has been involved. As far as the seizures there was thought to be a component of anxiety. He could speak when they were ongoing does not get postictal and an EEG was negative. As far as the colitis was thought possibly be infectious versus ischemic. He was treated with Levaquin and Flagyl. He did have bright red blood per rectum, noted to be hemorrhoids, which resolved. The patient was felt to be ready and has now been readmitted for acute in-hospital inpatient rehabilitation. PAST MEDICAL HISTORY: Includes pulmonary fibrosis, atrial fibrillation, pneumonia, COPD, hyperlipidemia, BPH, seizure disorder. PAST SURGICAL HISTORY: Includes nose surgery. FAMILY HISTORY: Diabetes in his brother and his mother had brain surgery. HABITS: Past smoker, quit greater than a year ago. No history of alcohol abuse. No history of recreational drug abuse. MEDICATIONS: Please see the full medication listing this includes vitamins, herbals, and supplements per report. ALLERGIES: Include EGG. [facility] [address] [place] [address] HISTORY AND PHYSICAL Name: IKER GAY Room #: 511-P [facility] IN M.R.#: [id number] Admission: 04/27/18 ������������������ Attend Phys: Krishna Chavez MD Discharge: ������������������ Date of : 48 Report #: [id number] SOCIAL HISTORY: Lives in a house alone, was premorbidly independent with basic ADLs and IADLs. He had someone come and help with cleaning and cooking 4 days a week for a couple of hours a day. He was driving in the community. He did not utilize any gait aids. REVIEW OF SYSTEMS: Did not offer any current complaints of chest pain, shortness of breath, abdominal discomfort. No focal pain complaints. Has concerns regarding his blood pressure as he increases his activity level. No dizziness, headaches were noted. No bowel or bladder changes. PHYSICAL EXAMINATION: GENERAL: This is a 68-year-old white male in no obvious distress. VITAL SIGNS: Temperature 97.9, pulse 75, respirations 16, blood pressure 100/72. The patient is sleepy, but easily arouses. He is on 5 liters nasal cannula. HEENT: Facies are symmetric. Follows basic 1-step commands. CHEST: Some decreased breath sounds diffusely. CARDIOVASCULAR: Sounded irregular. ABDOMEN: Bowel sounds positive, nontender. GENITOURINARY AND RECTAL: Deferred. EXTREMITIES: He has functional range of motion of both upper extremities. Strength is grade 4- to 3+/5. DTRs are trace to 1. I did not see any obvious lower extremity edema. Prior to coming to rehabilitation, he has been up ambulating 35 feet min assist front-wheeled walker with sit to stand, min assist. ASSESSMENT: This is a 68-year-old male with the following problem list: 1. Medical complexity with generalized debilitation. 2. Acute on chronic respiratory failure. 3. Colitis. 4. Pseudoseizures. 5. Symptomatic orthostatic hypotension. 6. Acute exacerbation of chronic obstructive pulmonary disease. 7. Pulmonary fibrosis. 8. Benign prostatic hypertrophy. 9. Chronic pain syndrome. 10. History of depression. PLAN: The patient is admitted for acute in-hospital inpatient rehabilitation. From a postadmission physician evaluation perspective, there are no relevant changes since the preadmission screening. Please see the above review of prior and current medical and functional conditions and comorbidities. Please see the patient's previous and current functional status. As far as risk of complications, the patient has multiple medical comorbidities as noted above. Initial plan of care involves the interdisciplinary acute inpatient rehabilitation program with goal of maximizing the patient's functional [facility] [address] [place] [address] HISTORY AND PHYSICAL Name: IKER GAY Room #: 511-P ADM IN M.R.#: [id number] Admission: 04/27/18 ������������������ Attend Phys: Krishna Chavez MD Discharge: ������������������ Date of : 48 Report #: [id number] independence, so that he can hopefully return back to his prior living situation. Measurable functional goals would be for the patient to become modified independent with transfers, mobility, ADLs, so that he can hopefully return back to his prior living situation. Prognosis is reasonably good with estimated length of stay probably at least 2-3 weeks pending progress. Potential barriers would include his multiple medical comorbidities and decreased functional status. The patient meets diagnostic criteria for an acute in-hospital inpatient rehabilitation stay. He meets the medical necessity criteria and we will have the career consultant physicians continue to follow. He does have the tolerance for therapies and has appropriate discharge goals back to the home setting. ADDENDUM The patient is on a low endurance program. We will continue to monitor his blood pressure, heart rate and with his multiple medical comorbidities, we will gradually be advancing his tolerance. He will be starting out at the low endurance program as noted. ��������������������������������������������� <ELECTRONICALLY SIGNED> ���������������������������������������� By: Krishna Chavez MD ��������������������������������������������� 05/07/18 0932 0914 0936 Krishna Chavez MD /nt
--- NOTE | 2018-05-07 11:31 | NUR ---
ASSUMED CARES AT 0700. REPORTS TOSSED AND TURNED LAST NIGHT BUT ABLE TO GET ENOUGH REST. PT AWAKE, ALERT AND ORIENTED X4. C/O NON-CARDIAC CHEST PAIN 09/18, HAS HX OF PULMONARY FIBROSIS. PAIN MEDICATION ADMINISTERED NEEDED. VITALS REMAINED STABLE FOR THIS PATIENT. BP STABLE THIS AM. MORNING MEDS GIVEN ORDERED. STILL HAS DIZZINESS OCCASIONALLY, GAVE PRN MECLIZINE PRIOR PHYSICAL THERAPY, REPORT HAD 5 MIN SEEING SPOT LIGHT, HAS LOW B/P AT THAT MOMENT AND IT BACK TO NORMAL. ENCOURAGED PT TO CALL WHEN HE GETS UP. HAS MILD TREMORS/ PSEUDOSEIZURES NOTED BETTER. PRN ATIVAN GIVEN EARLIER. PT SAID IT HELPED IN THE PAST WHEN HE HAD DIAZEMPAM. PT REMAINS ON 5L O2 VIA NC, LS CLEAR, O2 SATS >96%. PT UP WITH 1 PERSON MIN ASSIST, GAITBELT AND WALKER AND TOLERATED WELL. REASSESSMENT PER CHART. HAD LARGE BM THIS AM. UP TO BSC FOR TOILETING. PT CONT B&B. NOTED COUGHING. PT REQUESTS FOR COUGH DROP WILL NOTIFY JOEY TO OBTAIN ORDERED. Q1H VISUAL CHECKS, CALL LIGHT WITHIN REACH, FALL PRECAUTIONS IN PLACE. WILL CONTINUE TO MONITOR.
--- NOTE | 2018-05-07 11:49 | NUR ---
Nutrition: pt seen due to LOS on rehab unit. Admit with med complexity, general debility. Chart reviewed. Eating well on a regular diet, 100% most meals. Food preferences obtained and understands how to order meals. Current weight down 12# from reported usual over the past ~5-6 weeks. BMI 29. No nutrition interventions needed at this time. Consider low nutrition risk.
[2018-05-07 20:08] VITALS: BP 114/73
--- NOTE | 2018-05-08 03:48 | NUR ---
EASY PIVOT TRANSFER TO BSC FOR LARGE BM. PAIN PILL BY REQUEST AT THIS TIME. PATIENT IN GOOD SPIRITS AND STATES HE HAS BEEN SLEEPING WELL.
[2018-05-08 08:00] VITALS: BP 133/87
--- NOTE | 2018-05-08 11:27 | NUR ---
ASSUMED CARES AT 0700. PT AWAKE, AO*4. C/O NON-CARDIAC CHEST PAIN 07/19, PAIN MEDICATION ADMINISTERED NEEDED. LS CLEAR/ COARSE LOWER LOBES, ON 5L OXYGEN WITH SATS >95%, RECEIVING BREATHING TREATMENTS SCHEDULED. DENIES DIZZINESS, MINIMAL TREMORS NOTED. ALL OTHER VITALS REMAINED STABLE. UP WITH 1 PERSON MIN ASSIST, GAITBELT WALKER AND TOLERATED WELL. PT PREFERS THE DOOR CLOSED WITH LIGHTS OUT AND BLINDS PULLED, CHAIR/BEDALARM IN PLACE. CALL LIGHT WITHIN REACH. Q1H VISUAL CHECKS.
--- NOTE | 2018-05-08 15:56 | HC ---
[facility] [address] [address] CONSULTATION Name: IKER GAY Room #: 511-P [facility] IN M.R.#: [id number] Admission: 04/27/18 ������������������ Attend Phys: Krishna Chavez MD Discharge: ������������������ Date of : 48 Report #: [id number] THIS REPORT FOR: //name// CC: Krishna Ericksonh Glenis DATE OF SERVICE: 05/02/2018 NEUROBEHAVIORAL STATUS EXAM ATTENDING PHYSICIAN: Krishna Chavez MD. TRANSFER CLERK: Donovan Sotelo, PhD. CLINICAL PRESENTATION: The patient is a 68-year-old male admitted to the Rehab Unit for comprehensive inpatient rehabilitation program. The patient was initially admitted to the Rehab Unit on 04/13/2018 through 04/18/2018 for pulmonary rehab with acute on chronic respiratory failure. He had prior problems with hypotension, was having difficulty tolerating beta blockers. He was transferred to an acute medical floor to develop better management of atrial fibrillation and blood pressure and has then been readmitted to complete his inpatient rehab program. His assessment on admission to rehab includes medical complexity with generalized debility, acute on chronic respiratory failure, colitis, pseudoseizures, symptomatic orthostatic hypotension, acute exacerbation of COPD, pulmonary fibrosis, benign prostatic hypertrophy, chronic pain syndrome, and history of depression. A complete description of his medical condition and history along with medications can be found in his medical record. Neuropsychological consultation was requested to provide assistance in the assessment of cognitive and emotional status and to provide recommendations and services. As indicated, the patient was seen during his early rehabilitation stay. He was living independently at the time of this most recent medical event. The patient is a [place] [employer] . However, he did not see actual combat. He described suicidal attempt that included an overdose of oxycodone following the loss of a close friend about 3 weeks prior to his suicidal gesture. The friend is from hepatitis C. The patient denied a prior history of treatment for depression or suicidal ideation. He never . He has no children. The patient has 3 brothers and 1 sister. 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 TECHNIQUES UTILIZED: Clinical interview, review of medical records, staff consultation and behavioral observation, mini mental status exam 2 standard version, clock drawing and review of previous assessment and psychiatric [address] [address] CONSULTATION Name: IKER GAY Room #: 511-P [facility] IN M.R.#: [id number] Admission: 04/27/18 ������������������ Attend Phys: Krishna Chavez MD Discharge: ������������������ Date of : 48 Report #: [id number] consultation. During the initial assessment, I had an opportunity to speak with his sister and [id number]. EXAMINATION FINDINGS: The patient was pleasant and engaging during the assessment. He accurately described events surrounding his release from inpatient rehabilitation to an acute floor for better management of blood pressure. He reports anxiety in regard to his medical condition and upper extremity tremor that he associates with mood and behavior. However, he also had attributed the extremity tremor to seizure disorder for which he reports having a good response from Valium. The patient does not report difficulty with sleep or appetite. He states that he is experiencing difficulty with short-term memory and word finding. He denies difficulty with sleep, appetite or depression. His performance on the MMSE 2 standard version is consistent with the earlier assessment. His overall raw score was 25/30, which is a T-score of 42 and percentile rank of 21, which is in the low average range. He was 3/3 for initial registration, 4/5 for orientation to time, 5/[address] and 3/3 for immediate recall of 3 items after a brief time delay and distraction. He was 1/5 for serial 7s. Naming, repetition, comprehension, reading, writing and copying a simple geometric design were within normal limits. However, upper extremity tremor was noted. Clock drawing is within normal limits for both number and hand placement. His performance on the earlier neurobehavioral status exam revealed difficulty with verbal fluency with letter fluency at the 14th percentile and category fluency at the 16th percentile. His overall verbal fluency score was a T score of 36 and percentile rank of 8. The patient appears to be presenting mild deficits in cognition primarily in the area of executive functioning. He is alert and oriented. Variability in memory may also be noted. Psychiatric consultation was obtained and the patient was found to have primarily atypical anxiety and mood disorder. A change in antidepressant was recommended and minimizing use of benzodiazepines was also suggested. DIAGNOSTIC IMPRESSION: 1. Mild neurocognitive disorder, likely due to medical etiology, without behavior disorder. 2. Unspecified anxiety disorder with depressed mood. 3. Substance use disorder -- oxycodone. RECOMMENDATIONS: Medications with sedating features should be used cautiously [address] [address] CONSULTATION Name: IKER GAY Room #: 511-P ADM IN M.R.#: [id number] Admission: 04/27/18 ������������������ Attend Phys: Krishna Chavez MD Discharge: ������������������ Date of : 48 Report #: [id number] because of history of narcotic overuse. Continued use of an antidepressant medication along with psychological services to assist in adjustment are indicated. The use of relaxation techniques. Normalization of his symptoms and with an accurate description, as for the reason for his tremor being due to anxiety rather than a seizure disorder. Blood pressure changes and changes in pulmonary function may also be contributing to tremor and increased anxiety. The patient would benefit from placement in a custodial community. Increased socialization will assist his overall adjustment. Helping the patient identify the value of rehab to the extent of improving endurance, so that at discharge placement, he will have more success at engaging with others will also help with motivation and compliance. Thank you very much for allowing me to provide the consultation on this patient. ��������������������������������������������� <ELECTRONICALLY SIGNED> ���������������������������������������� By: Donovan Sotelo, PhD ��������������������������������������������� 05/08/18 1556 1344 1919 Donovan Sotelo, PhD /nt
[2018-05-08 20:10] VITALS: BP 113/77
--- NOTE | 2018-05-09 02:08 | NUR ---
PT ALERT AND ORIENTED X 4. AMB TO BR WITH GAIT BELT AND ASSIST X 1 WITHOUT DIFFICULTY. 02 ON AT 5L PER NC CONT. PT C/O NON-CARDIAC CHEST PAIN. HYDROCODONE GIVEN AT HS. BED ALARM ON FOR SAFETY. PT APPEARS TO BE SLEEPING ON HOURLY ROUNDS.
[2018-05-09 08:00] VITALS: BP 126/78
--- NOTE | 2018-05-09 16:32 | NUR ---
ASSUMED CARE AT APPROX 0715. PATIENT A/O X4. C/O GENERALIZED PAIN, PAIN MEDS OFFERED AVAILABLE. REPORTS PARTIAL RELIEF. WALKED WITH NURSING. UP IN RECLINER, LEGS ELEVATED. PATIENT CALLS APPROPRIATELY FOR ASSISTANCE. UP TO BSC TO VOID. SATS MAINTAINED ON 5 L PER NC. FALL PRECAUTIONS IN PLACE. ROUNDED ON HOURLY. WILL CONTINUE TO MONITOR.
[2018-05-09 19:55] VITALS: BP 110/74
--- NOTE | 2018-05-10 02:20 | NUR ---
PT ASSESSMENT COMPLETED AND VSS. MEDS GIVEN ORDERED AND WELL TOLERATED. FALL PRECAUTIONS IN PLACE. UP TO THE BATHROOM WITH ASST/GAIT. STEADY. VOIDING LARGE AMOUNT OF YELLOW URINE. PRN PAIN MEDICATION WORKING WELL. WILL CONTINUE TO MONITOR FREQUENTLY.
[2018-05-10 07:30] VITALS: BP 127/68
[2018-05-10] MEDS ORDERED: EFFEXOR XR37.5 MG PO (09:16)
[2018-05-10] MEDS ORDERED: PEPCID20 MG PO (09:16)
[2018-05-10] MEDS ORDERED: NORCO 5-325 TA1 EACH PO (09:17)
[2018-05-10] MEDS ORDERED: PACERONE 200 M200 M1 PO (09:20)
[2018-05-10 09:56] VITALS: BP 127/68
[2018-05-10] MEDS ORDERED: DIGOXIN125 MCG PO (12:30)
--- NOTE | 2018-05-10 12:35 | NUR ---
PT. DISCHARGING TODAY TO [facility] FAXED DC ORDERS/SUMMARY TO FACILITY SPOKE WITH TERESA IN ADM. SHE RECEIVED DC ORDERS AND SET UP TRANSPORT VIA WC VAN AND 5L O2 FOR [phone]. NOTIFIED PT'S SISTER HUEY (DPOA) OF DISCHARGE AND TIME OF TRANSPORT. UNIT NOTIFIED AND CHART COPY PER US. RN TO CALL REPORT TO [phone].
--- NOTE | 2018-05-10 14:20 | NUR ---
chart copy requested this am for dc to [facility] today. bedside nurse to call report. [facility] transportation set up for [phone]. cm notified pt sister mercy " thank you all for your help"/mercy
--- NOTE | 2018-05-10 14:44 | NUR ---
ASSUMED CARE AT APPROX 0715. PATIENT A/O X4. C/O GENERALIZED PAIN, MEDICATED FOR PAIN PRN ORDERED. PARTICIPATED IN GRAD DAY THERAPY SESSIONS. SATS MAINTINED ON ROOM AIR. ORTHOSTATIC HYPOTENSION NOTED, PATIENT EDUCATED ON PACING HIMSELF TO CHANGE POSITION AND ENCOURAGED FLUID INTAKE. PATIENT VERBALIZED UNDERSTANDING. REVIEWED PATIENT HANDOUTS REGARDING ORTHOSTATIC HYPOTENSION, A FIB, ANXIETY, AND RESPIRATORY FAILURE. MED ORDERS AND SCRIPTS PROVIDED IN PACKET, GIVEN TO TRANSPORTER. REPORT CALLED TO RN "BEN" AT [facility]. FALL PRECAUTIONS IN PLACE. PATIENT LEFT UNIT WITH TRANSPORTER AT APPROX 1445. NEW MED ORDERS PRINTED TO REFLECT ADJUSTMENT OF DIGOXIN DOSE, SENT IN PACKET WITH TRANSPORTER.
== END 2018-05-10 15:27 | DRG 189 ==
PROVIDERS: Nurse Practitioner; Nurse Practitioner Family; ADMIT Physical Medicine & Rehabilitation
DX: J96.20 Acute and chronic respiratory failure, unspecified whether with hypoxia or hypercapnia (principal); J44.1 Chronic obstructive pulmonary disease with (acute) exacerbation; I48.91 Unspecified atrial fibrillation; J84.10 Pulmonary fibrosis, unspecified; E78.5 Hyperlipidemia, unspecified; N40.0 Benign prostatic hyperplasia without lower urinary tract symptoms; G40.909 Epilepsy, unspecified, not intractable, without status epilepticus; K52.9 Noninfective gastroenteritis and colitis, unspecified; I95.1 Orthostatic hypotension; G89.4 Chronic pain syndrome; F32.9 Major depressive disorder, single episode, unspecified; F41.9 Anxiety disorder, unspecified; R53.81 Other malaise; K64.9 Unspecified hemorrhoids; E83.51 Hypocalcemia; Z83.3 Family history of diabetes mellitus; Z87.891 Personal history of nicotine dependence
CPT/HCPCS: 10112